=== PATIENT | female | born 1960 | race Caucasian/White ===

== ENCOUNTER → 2017-07-09 | Outpatient (CLI) | payer OTHER ==
[~2017-07-09] MED LIST: CALCTAB5 PO; PANT40TA PO
--- NOTE | 2017-07-09 13:03 | DIAGNOSTIC IMAGING REPORT ---
GASTRIC EMPTYING HISTORY: Pain. Nausea. ABDOMINAL PAIN, EPIGASTRIC PAIN COMPARISON: None. TECHNIQUE: Following the oral administration of 1 mCi of technetium 99m sulfur colloid in egg sandwich and 8 ounces of water, static abdominal images are obtained anteriorly and posteriorly at 0 minutes, 1 hour, 2 hour, and 4 hour time intervals. Gastric emptying was calculated utilizing the geometric mean method. FINDINGS: There is approximately 78 % activity remaining at the 1 hour time interval (normal is less than 90%), 40 % remaining at the 2 hour time interval (normal is less than 60%), and 4 % activity remaining at the 4 hour time interval (normal is less than 10%). IMPRESSION: No evidence for delayed gastric emptying. The above report was generated using voice recognition software. It may contain grammatical, syntax or spelling errors. Electronically signed by: Álvaro Martinez M.D. 07/09/2017 1:01 PM Dictated Date/Time: 07/09/2017 1:00 PM
== END | disposition home or self-care (01) ==
LOC: C.NUCL 08:03
PROVIDERS: ATTEND Internal Medicine
DX: R10.13 Epigastric pain (principal)

== ENCOUNTER 2023-03-27 06:15 | Inpatient (IN) ==
[2023-03-27 06:50] LABS: Basophils # (auto) 0.07 K/uL (0.00-0.20); Basophils % (auto) 0.6 %; Eosinophils # (auto) 0.04 K/uL (0.00-0.50); Eosinophils % (auto) 0.3 %; Hematocrit (blood only) 37.9 % (37.0-47.0); Hemoglobin 14.1 g/dl (12.0-16.0); Immature Granulocytes # (auto) 0.04 K/uL (0.01-0.20); Immature Granulocytes % (auto) 0.3 %; Lymphocytes # (auto) 1.27 K/uL (1.20-3.40); Lymphocytes % (auto) 10.9 %; Mean Corpuscular Hemoglobin 33.2 pg (25.0-34.0); Mean Corpuscular Hgb Conc 37.2 g/dL (32.0-36.0); Mean Corpuscular Volume 89.2 fL (80.0-100.0); Mean Platelet Volume 9.1 fL (9.4-12.4); Monocytes # (auto) 0.47 K/uL (0.11-0.59); Neutrophils # (auto) 9.78 K/uL (1.40-6.50); Neutrophils % (auto) 83.9 %; Platelet Count 284 K/uL (130-400); RDW Coefficient of Variation 11.2 % (11.5-14.5); RDW Standard Deviation 35.8 fL (36.4-46.3); Red Blood Count 4.25 M/uL (4.20-5.40); White Blood Count 11.67 K/ul (4.8-10.8)
--- OUTSIDE RECORDS SUMMARY | 2023-03-27 06:56 | External Medical Summary | Continuity of Care Document ---
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 Role Phone Marlyn Garcia Primary Care Physician [phone] [id number] Date[facility] 11/11[facility] - 11/11/22 [facility] [address] [place], [place] [id number] [facility] [address] [place] [id number] Encounter Diagnosis Raynaud disease(Discharge Diagnosis) - 11/11/22 Tinea unguium(Discharge Diagnosis) - 11/11/22 Discharge Disposition: Home or Self Care Attending Physician: BRITT Cherry Christina L Allergies, Adverse Reactions, Alerts Substance Reaction Severity Status omeprazole rash Active Percocet 7.5/325 insomnia Active Assessment and Plan Extracted from: Title:Follow Up Visit Author:BRITT Cherry, Pavel Schuster Date:11/11/22 1.Raynaud disease 2.Tinea unguium Patient will continue topical Kerydin, not need of any refills today. Overall I appreciate significant improvement there is no paronychia or signs of infection recommend follow-up in 6 months. 15-minute follow-up visit, 5-minute chart review, 10 minutes [id number] Immunizations Given and Recorded Vaccine Date Status Refusal Reason SARS-CoV-2 (COVID-19) mRNA-1273 vaccine 1 08/08/20 Recorded SARS-CoV-2 (COVID-19) mRNA-1273 vaccine 2 07/11/20 Recorded 1Result Comment: 2020-09-20: Historical information-source unspecified 2Result Comment: 2020-09-20: Historical information-source unspecified Medications famotidine 20 mg oral tablet Start: 10/18/21 13:28:00 EDT Start Date: 10/18/21 Status: Ordered magnesium oxide Start: 02/18/20 15:00:00 EDT Start Date: 02/18/20 Status: Ordered mirtazapine 7.5 mg oral tablet Start: 10/18/21 13:27:00 EDT Start Date: 10/18/21 Status: Ordered multivitamin Start: 02/18/20 14:59:00 EDT Start Date: 02/18/20 Status: Ordered nystatin 100,000 units/mL oral suspension Start: 10/18/21 13:27:00 EDT Start Date: 10/18/21 Status: Ordered ondansetron 4 mg oral tablet Start: 02/18/20 14:59:00 EDT Start Date: 02/18/20 Status: Ordered Premarin 0.625 mg/g vaginal cream with applicator Start: 01/12/19 11:15:00 EDT, 1 g = Start Date: 01/12/19 Status: Ordered sertraline 25 mg oral tablet Start: 10/18/21 13:27:00 EDT, 1 tab, PO, Daily Start Date: 10/18/21 Status: Ordered SUMAtriptan 25 mg oral tablet take 1 tablet by mouth if needed AT ONSET OF HEADACHE may repeat ... (REFER TO PRESCRIPTION NOTES). Start Date: 11/11/22 Status: Ordered Tavaborole 5% topical solution Start: 01/29/22 10:17:00 EDT, See Instructions, Disp# 10 mL, Refills: 4, APPLY TOPICALLY DAILY FOR 48 WEEKS, Pharmacy: [facility] #[id number] Start Date: 01/29/22 Status: Ordered Zinc Start: 02/18/20 15:00:00 EDT Start Date: 02/18/20 Status: Ordered Mental Status 11/11/22 Barriers to Learning one year None evide nt Mandatory Health Literacy Documentation Yes Health Literacy Communication Barriers N ever Primary Language Nepalese Problem List Condition Confirmation Course Effective Dates Status Health St atus Informant Right-sided chest wall pain Confirmed Active Chronic fatigue syndrome with fibromyalgia Confirmed Active GERD (gastroesophageal reflux disease) Confirmed Active Tinea unguium Confirmed Active Plantar fasciitis, right Confirmed Active Raynaud disease Confirmed Active Reactive airway disease Confirmed Active Diagnosis Diagnosis Type Effective Dates Health Status inical Service Informant Raynaud disease Discharge Diagnosis 11/11/22 Tinea unguium Discharge Diagnosis 11/11/22 Vital Signs Most recent to oldest [Reference Range]: 1 Height 153.5 cm (11/11/22 9:09 AM) Patient Weight 38.6 kg (11/11/22 9:09 AM) Body Mass Index 16.38 kg/m2 (11/11/22 9:09 AM) Social History Social History Type Response Smoking Status Never smoked cigaret beto Sex Female Ortho Outpt Note * BRITT Cherry, Lizzy Schuster: PERFORM Event Display: Ortho Outpt Note Authored Date: [id number] Chief Complaint 6-month follow up for Raynaud's, medication is helping and patient states it''s moving in the rightdirection Primary Care Provider DO Garcia Laura M Subjective Patient is a very pleasant 61-year-old female presenting today for follow-up evaluation of a fungaltoenailhistory of athlete's foot infection and history of Raynaud's to distal extremities. She has been using topical Kerydin to the toenail at her last visit with me on May 20, 2022she wasdoing well. -I had recommended she continue her topical antifungal medicationat her next follow-up. -Doing great today no acute concerns. Review of Systems Raynaud's Objective Vitals & Measurements WT:38.600kg(Dosing) WT:38.6kg Physical Exam Problem focused bilateral feet: Dorsalis pedis pulse palpable 2 out of 4posterior tibial pulse palpable 2 out of 4capillary refill time less than 3 seconds skin turgor is good to all digits of both feet pedal hair is present Gross sensation and neurovascular status is intact to both feet Skin is clean and dry with no open wounds or lesions Bilateral hallux toenailsstill has some mild dystrophyonly present at distal aspect of the nailmore prevalent on left versus right great toe. Overall significant improvement noted clinical photo in chart. Raynaud's disease stable to both feet. History of Planter fasciitis not addressed at today's visit. Images 2022-11-11 09:22:13 Assessment/Plan 1.Raynaud disease 2.Tinea unguium Patient will continue topical Kerydin, not need of any refills today. Overall I appreciate significant improvement there is no paronychia or signs of infection recommend follow-up in 6 months. 15-minute follow-up visit, 5-minute chart review, 10 minutes [id number] Electronic Signature on File Electronically Reviewed/Signed by: Lizzy Cherry DPM Author Signature Dt/Tm:11/11/2022 09:26 AM Division of Sports Medicine CLR Patient Care team information Care Team Personnel Name: DO Garcia Laura M Position: Referring DIRECT Member Role: Primary Care Provider Address: Address: [address] [place] [phone] Name: BRITT Cherry Christina L Position: Physician - Podiatry Member Role: Lifetime Relationship Address: Address: [address] [address] Care Team Related Persons Name: ASHLIE PULIDO Address: home [address] [place] [phone] Name: TREVOR PULIDO Address: home [address] [place] [phone]
[2023-03-27] MEDS ORDERED: SODIUM CHLORIDE 0.9% 1,000 ML IV ONE (06:58)
[2023-03-27] MEDS ORDERED: LEVALBUTEROL 1.25 MG/3 ML NEB NEB STA (07:01)
[2023-03-27 07:05] LABS: Albumin Globulin Ratio 1.9 (0.9-2); Albumin Level 4.8 gm/dl (3.4-5.0); BUN Creatinine Ratio 22.2 (10-20); Bilirubin,Total 1.1 mg/dl (0.2-1.0); Calcium 9.7 mg/dl (8.6-10.3); Creatinine Clr Calc Pharmacy 58.2 ml/min; Est GFR (African American) 109.9 ml/min; Est GFR (Non-African American) 94.8 ml/min; Globulin 2.5 gm/dl (2.5-4.0); Potassium 3.9 mmol/L (3.5-5.1); Total Protein 7.3 gm/dl (6.0-8.3)
[2023-03-27 07:11] LABS: Troponin I High Sensitivity 4.5 pg/ml (0-14)
[2023-03-27 07:21] LABS: Thyroid Stimulating Hormone 1.362 uIu/ml (0.300-4.500)
--- NOTE | 2023-03-27 07:33 | Emergency Department Note ---
Impression & Plan Respiratory syncytial virus (RSV), Dizziness, Atypical chest pain ED Provider Note Provider: Shashi Ocasio MD DATE OF SERVICE: 03/27/2023 CHIEF COMPLAINT: Respiratory symptoms, chest discomfort, disorientation HISTORY OF PRESENT ILLNESS: Patient is a 62-year-old female reports has been ill for just over 2 weeks. Started with sinus congestion and cough symptoms. Seen by her PCP just before and put on amoxicillin questioning sinusitis. This was not helping and several days ago and further discussion with the primary doctor's office as well as had additional telemedicine visit. Was initially switched to cefdinir and then had a respiratory viral panel completed yesterday that returned positive for adenovirus and RSV. Doctor told her to stop the antibiotic which she has not taken yet today and started 20 mg prednisone as well as use levobunolol to help with her symptoms. Overnight however the patient states been able to sleep intermittently coughing nonproductive in nature with some pain in her right forearm, left upper arm, and left chest at times. [place] some palpitations as well as some chills. Denies significant abdominal pain or nausea or vomiting. No recent travel. No sick contacts. States felt dizzy and lightheaded some points overnight but has not passed out or fallen. Denies numbness or tingling in the extremities. Was up to make some food and breakfast and then start the new steroid but according to family presents she was having difficulty this was shuffling around and was not herself. She seemed a bit disoriented. Has a history of SVT and follows with Dr. Anderson and was scheduled for stress echo several days ago but had to reschedule due to her illness. Reports sensitive to many medications and has been utilizing honey and some Vicks rub but staying away from many cough and cold medicines. Minimal chest discomfort at this time. She does report she had a couple lung nodules followed with CT scans in the past. PAST MEDICAL HISTORY: As noted above MEDICATIONS: Reviewed medication list but has not been able to pickling grader the level butyryl yet has not yet started prednisone. SOCIAL HISTORY: Smoked briefly as a teenager many years ago but otherwise not smoking PHYSICAL EXAM: GENERAL: alert and oriented in no acute distress on stretcher Head: normocephalic and atraumatic EYES: No injection, discharge or icterus. PERRL, EOMI. NECK: Trachea midline. Supple with good range of motion of the neck ENT: Mucous membranes pink and moist. Pharynx without erythema or exudate. LUNGS: Airway patent. No retractions. Breath sounds clear with good air entry bilaterally. Deep breaths provoke coughing HEART: Regular rate and rhythm. No chest wall tenderness ABDOMEN: Soft and non-tender, without guarding or rebound. SKIN: Acyanotic, warm, dry, without rashes EXTREMITIES: Without swelling, tenderness or deformity NEUROLOGICAL: No focal deficits. No aphasia. No facial droop or slurred speech. Normal strength and tone in the extremities. Sensation to gross touch normal. EK bpm normal sinus rhythm. No PVC or PAC. No acute ST segment elevation or depression with a QTc of 430. CONTINUOUS CARDIAC MONITORING: was ordered and showed a heart rate of 80s-90s bpm in normal sinus rhythm Patient's laboratory studies and imaging reviewed. Differential includes Infection, pneumonia, sinusitis, NEEDLE SETTER, meningitis, dehydration, metabolic abnormality, hypo/hyperglycemia, electrolyte disturbance, anemia, hypoxia/asthma, cardiac sources -- including PE, dissection, ACS--, intracerebral event, toxicologic, neurologic, as well as other pathologies. IMPRESSION/MEDICAL DECISION MAKING: Patient 2-week of illness. Tested positive for adenovirus and RSV; obtained via the [facility] medical record system this testing result from yesterday. Chest x-ray obtained. Not hypoxic here. Doubt pneumonia and has been on antibiotics. History of sensitivity medications as well as a history of SVT. Unclear if she could have had some brief episodes overnight but does not appear to be SVT upon arrival. EKG is reassuring without ischemic changes. Troponin was sent for completeness. Basic labs obtained. Given some IV fluid as well as a bit of levalbuterol to see if this helps with some of her symptoms. Not significantly wheezing but reports a history of "reactive airway" and as such we will see if this helps a bit with cough. The disorientation and dizziness I question her from generalized illness and some weakness and again received some IV fluids. No trauma or syncope. Nonfocal in nature I doubt seizure or CVA. Quite fatigued. Blood work obtained here with a slight white blood cell count of 11.6 not currently on steroids. No evidence of anemia or thrombocytopenia on lab work. Sodium mildly low at 131. No significant renal dysfunction noted today. No other significant electrolyte abnormality. No evidence of hepatitis or pancreatitis based on labs. Troponin is reassuringly normal. TSH within normal limits. Chest x-ray reviewed and interpreted by myself without evidence of focal consolidation concerning for pneumonia, pneumothorax, or significant fluid overload. No cardiomegaly. Radiology report reviewed. No evidence of NEEDLE SETTER or RPA and she does NOT appear meningitic. Question if her weakness and symptoms are related to her viral illness. History of SVT does question if she possibly had an episode or 2 overnight but cannot confirm. At this time given her generalized weakness now causing even some mild confusion at some point so I do not believe a head CT would be beneficial. Do not believe antibiotics indicated at this point. Discussed with her and family at bedside. Patient still experiencing some lightheadedness in a chair decision making and she was to stay for observation. Discussed with hospitalist team. Later received a dose of Tylenol for some headache. DIAGNOSIS: RSV/adenovirus, chest pain, weakness DISPOSITION: Hospitalist will evaluate Patient was agreeable with this plan. Past Med/Surg History Medical History Sinus infection Palpitations Dizziness History of paroxysmal supraventricular tachycardia Underweight pt stated she "is underweight and dehydrates easily. she was given permission by the anesthesiologist and her opthalmologist to drink 8oz of water 3.5 hours prior to her surgery." Chronic fatigue syndrome History of GI bleed after endoscopy Asthma Lyme disease 2005 - treated Endometriosis Vertigo Tinnitus Hyperacusis Eustachian tube dysfunction Reactive airway disease Surgical History Hx of cataract extraction rt. Hx laparoscopic cholecystectomy (03/04/22) Laparoscopic cholecystectomy. Dr. Alexandra History of open reduction and internal fixation (ORIF) procedure right hand 5th finger fx Nausea and vomiting after administration of anesthetic agent History of anesthesia reaction "trouble waking up" Hx of laparoscopy History of repair of inguinal hernia S/P colonoscopy H/O toe surgery Family History Family/Other Diabetes Heart disease Cancer Lung cancer Father Cancer Colorectal cancer Heart disease Hypertension Mother Cancer Diabetes Uncle Cancer Sister Clotting disorder Social History Smoking Status: Former smoker Second Hand Exposure: Yes (hx); Do You Dip or Chew Tobacco: No; Hx Alcohol Use: No Hx Substance Use: Yes Non-Prescribed Medications: Amphetamines, Former Misuse of Non-Prescribed Rx, Hallucinogens and Marijuana Non-Prescribed Medications Comment: former Preferred Language: Tunisian Communication Ability: Effective Visual Impairment: No Limitations Punch Press Setter Required: No Beliefs That Will Affect Care: None marital status: / Current Living Situation: Alone current occupational status: unemployed and retired current occupation: Homemaker How many Children do You have: 2 Feels Safe at Home: Yes Diet: gluten free Diet Comment: Dairy free during the past year weight has: decreased > 10 lbs Assistive Devices: Glasses Allergies Allergies Allergy/AdvReac Type Severity Reaction Status Date / Time scopolamine Allergy Intermediate Blurry Verified 02/03/23 13:10 Vision, Dizzy, Groggy, for weeks omeprazole Allergy Unknown Rash Verified 02/03/23 13:10 oxycodone [From Percocet] AdvReac Unknown RESTLESSNES Verified 02/03/23 13:10 S Home Meds Home Medications Medication Instructions Recorded Confirmed polyethylene glycol 3350 17 17 gm PO QAM PRN Constipation 06/22/19 03/27/23 gram/dose oral powder (Miralax) zinc oxide 15 mg disintegrating 15 mg PO QDL 06/22/19 03/27/23 tablet estradiol 0.01% (0.1 mg/gram) See Rx Instructions .Route .COMPLEX 09/09/19 03/27/23 vaginal cream digestive enzymes 1 cap PO BID 09/14/19 03/27/23 Bone Up 1 tab PO BID 03/01/22 03/27/23 famotidine 20 mg tablet (Pepcid) 20 mg PO QPM 03/01/22 03/27/23 fluticasone furoate 100 1 inh inhalation QAM 03/01/22 03/27/23 mcg-vilanterol 25 mcg/dose inhalation powder (Breo Ellipta) tavaborole 5 % topical solution 1 applic topical QAM 03/01/22 03/27/23 with applicator (Kerydin) Sinus Calm 1 tab PO DIRECTED PRN Congestion 06/18/22 03/27/23 Soothe Eye Drops 1 drp ophthalmic (eye) DIRECTED 06/18/22 03/27/23 Magnesium 150 Mg 150 mg PO DAILY 03/27/23 03/27/23 Multivitamin Gummies 1 ea PO BID 03/27/23 03/27/23 Pearls Probiotic 1 cap PO DAILY 03/27/23 03/27/23 ascorbic acid (vitamin C) 500 mg 500 mg PO DAILY 03/27/23 03/27/23 tablet triamcinolone acetonide 55 mcg See Rx Instructions .Route .COMPLEX 03/27/23 03/27/23 nasal spray aerosol (Nasacort) Results & Data (ED) Vital Signs Vital Signs - 24 hr 03/27/23 06:16 03/27/23 06:18 03/27/23 06:18 Temperature 37.0 C Temperature Source Oral Pulse Rate 92 H 99 H 100 H Pulse Rate from SpO2 Sensor Respiratory Rate 20 15 Respiratory Effort / Characteristics Non-Labored Spontaneous Respiratory Depth Normal Blood Pressure 131/77 Blood Pressure Mean 95 Pulse Oximetry 99 Oxygen Delivery Method Room Air Sepsis Recent Fever Within 48 Hours Yes Sepsis New/Unexplained Change in Mental Status N/A Sepsis Action Taken by Nursing No Action Required 03/27/23 06:22 03/27/23 06:22 03/27/23 06:30 Temperature Temperature Source Pulse Rate 88 Pulse Rate from SpO2 Sensor 88 Respiratory Rate 19 Respiratory Effort / Characteristics Respiratory Depth Blood Pressure 131/77 130/79 Blood Pressure Mean 119 87 Pulse Oximetry 100 Oxygen Delivery Method Sepsis Recent Fever Within 48 Hours Sepsis New/Unexplained Change in Mental Status Sepsis Action Taken by Nursing 03/27/23 06:30 03/27/23 06:48 03/27/23 07:00 Temperature Temperature Source Pulse Rate 83 Pulse Rate from SpO2 Sensor 82 Respiratory Rate 15 Respiratory Effort / Characteristics Respiratory Depth Blood Pressure 117/67 Blood Pressure Mean 93 Pulse Oximetry 100 99 Oxygen Delivery Method Room Air Sepsis Recent Fever Within 48 Hours Sepsis New/Unexplained Change in Mental Status Sepsis Action Taken by Nursing 03/27/23 07:00 03/27/23 07:30 03/27/23 07:30 Temperature Temperature Source Pulse Rate 85 90 Pulse Rate from SpO2 Sensor 84 94 H Respiratory Rate 26 H 16 Respiratory Effort / Characteristics Respiratory Depth Blood Pressure 124/73 Blood Pressure Mean 80 Pulse Oximetry 98 100 Oxygen Delivery Method Sepsis Recent Fever Within 48 Hours Sepsis New/Unexplained Change in Mental Status Sepsis Action Taken by Nursing 03/27/23 08:00 03/27/23 08:00 03/27/23 08:30 Temperature Temperature Source Pulse Rate 93 H Pulse Rate from SpO2 Sensor 92 H Respiratory Rate 14 Respiratory Effort / Characteristics Respiratory Depth Blood Pressure 123/77 123/74 Blood Pressure Mean 88 92 Pulse Oximetry 100 Oxygen Delivery Method Sepsis Recent Fever Within 48 Hours Sepsis New/Unexplained Change in Mental Status Sepsis Action Taken by Nursing 03/27/23 08:30 03/27/23 09:00 03/27/23 09:00 Temperature Temperature Source Pulse Rate 91 H 91 H Pulse Rate from SpO2 Sensor 92 H 92 H Respiratory Rate 18 21 Respiratory Effort / Characteristics Respiratory Depth Blood Pressure 117/68 Blood Pressure Mean 77 Pulse Oximetry 99 97 Oxygen Delivery Method Sepsis Recent Fever Within 48 Hours Sepsis New/Unexplained Change in Mental Status Sepsis Action Taken by Nursing 03/27/23 09:30 03/27/23 09:30 03/27/23 10:00 Temperature Temperature Source Pulse Rate 95 H 86 Pulse Rate from SpO2 Sensor 95 H 86 Respiratory Rate 24 17 Respiratory Effort / Characteristics Respiratory Depth Blood Pressure 118/74 Blood Pressure Mean 88 Pulse Oximetry 98 98 Oxygen Delivery Method Sepsis Recent Fever Within 48 Hours Sepsis New/Unexplained Change in Mental Status Sepsis Action Taken by Nursing 03/27/23 10:00 03/27/23 10:30 03/27/23 10:30 Temperature Temperature Source Pulse Rate 84 Pulse Rate from SpO2 Sensor 83 Respiratory Rate Respiratory Effort / Characteristics Respiratory Depth Blood Pressure 132/73 95/54 L Blood Pressure Mean 88 59 Pulse Oximetry 96 Oxygen Delivery Method Sepsis Recent Fever Within 48 Hours Sepsis New/Unexplained Change in Mental Status Sepsis Action Taken by Nursing 03/27/23 10:37 03/27/23 11:00 03/27/23 11:00 Temperature Temperature Source Pulse Rate 77 92 H Pulse Rate from SpO2 Sensor 91 H Respiratory Rate 18 Respiratory Effort / Characteristics Respiratory Depth Blood Pressure 100/75 Blood Pressure Mean 82 Pulse Oximetry 99 Oxygen Delivery Method Sepsis Recent Fever Within 48 Hours Sepsis New/Unexplained Change in Mental Status Sepsis Action Taken by Nursing 03/27/23 11:30 03/27/23 12:00 Temperature Temperature Source Pulse Rate 87 86 Pulse Rate from SpO2 Sensor 87 87 Respiratory Rate 15 18 Respiratory Effort / Characteristics Respiratory Depth Blood Pressure 110/62 120/72 Blood Pressure Mean 78 88 Pulse Oximetry 96 97 Oxygen Delivery Method Sepsis Recent Fever Within 48 Hours Sepsis New/Unexplained Change in Mental Status Sepsis Action Taken by Nursing Laboratory Data 03/27/23 06:26 03/27/23 06:26 Lab Results 03/27/23 03/27/23 03/27/23 Range/Units 06:26 12:00 Unknown WBC 11.67 H (4.8-10.8) K/ul RBC 4.25 (4.20-5.40) M/uL Hgb 14.1 (12.0-16.0) g/dl Hct 37.9 (37.0-47.0) % MCV 89.2 (80.0-100.0) fL MCH 33.2 (25.0-34.0) pg MCHC 37.2 H (32.0-36.0) g/dL RDW Std Deviation 35.8 L (36.4-46.3) fL RDW Coeff of [place] 11.2 L (11.5-14.5) % Plt Count 284 (130-400) K/uL MPV 9.1 L (9.4-12.4) fL Immature Gran % (Auto) 0.3 % Neut % (Auto) 83.9 % Lymph % (Auto) 10.9 % Adams % (Auto) 4.0 % Eos % (Auto) 0.3 % Baso % (Auto) 0.6 % Neut # (Auto) 9.78 H (1.40-6.50) K/uL Lymph # (Auto) 1.27 (1.20-3.40) K/uL Adams # (Auto) 0.47 (0.11-0.59) K/uL Eos # (Auto) 0.04 (0.00-0.50) K/uL Baso # (Auto) 0.07 (0.00-0.20) K/uL Immature Gran # (Auto) 0.04 (0.01-0.20) K/uL PT 11.0 (9.0-12.0) Seconds INR 1.0 (0.9-1.1) Sodium 131 L (136-145) mmol/L Potassium 3.9 (3.5-5.1) mmol/L Chloride 98 (98-107) mmol/L Carbon Dioxide 23 (21-32) mmol/L Anion Gap 10 (3-11) BUN 14 (6-23) mg/dl Creatinine 0.63 (0.6-1.2) mg/dl Est Cr Clr Drug Dosing 58.2 ml/min Est GFR ( Amer) 109.9 ml/min Est GFR (Non-Af Amer) 94.8 ml/min BUN/Creatinine Ratio 22.2 H (10-20) Glucose 93 (70-99(Fasting)) mg/dl Calcium 9.7 (8.6-10.3) mg/dl Phosphorus 2.8 (2.5-4.9) mg/dl Magnesium 2.1 (1.7-2.4) mg/dl Total Bilirubin 1.1 H (0.2-1.0) mg/dl AST 33 (13-39) U/L ALT 51 (7-52) U/L Alkaline Phosphatase 77 (34-104) U/L Troponin I High Sens 4.5 2.5 (0-14) pg/ml Total Protein 7.3 (6.0-8.3) gm/dl Albumin 4.8 (3.4-5.0) gm/dl Globulin 2.5 (2.5-4.0) gm/dl Albumin/Globulin Ratio 1.9 (0.9-2) Lipase 13 (11-82) U/L Procalcitonin 0.05 (0-0.5) ng/ml TSH 1.362 (0.300-4.500) uIu/ml Urine Color Yellow Urine Appearance Clear (Clear) Urine pH 7.0 (4.5-7.5) Ur Specific [place] 1.010 (1.000-1.030) Urine Protein Negative (Negative) Urine Glucose (UA) Negative (Negative) Urine Ketones 1+ H (Negative) Urine Blood Negative (Negative) Urine Nitrite Negative (Negative) Urine Bilirubin Negative (Negative) Urine Urobilinogen Negative (Negative) Ur Leukocyte Esterase Negative (Negative) Administered Medications Discontinued Medications Acetaminophen (Acetaminophen 325 Mg Tab) 650 mg PO NOW STA Stop: 03/27/23 09:36 Last Admin: 03/27/23 09:41 Dose: 650 mg Documented By: HS Sodium Chloride (Nss) 1,000 mls @ 999 mls/hr IV .Q1H1M ONE Stop: 03/27/23 07:58 Last Infusion: 03/27/23 08:23 Dose: Infused Documented By: Admin: 03/27/23 07:19 Dose: 999 mls/hr Documented By: HS Levalbuterol HCl (Levalbuterol 1.25 Mg/3 Ml Neb) 1.25 mg NEB NOW STA Stop: 03/27/23 07:02 Last Admin: 03/27/23 07:19 Dose: 1.25 mg Documented By: HS Prednisone (Prednisone 50 Mg Tab) 20 mg PO ONCE ONE Stop: 03/27/23 08:36 Last Admin: 03/27/23 08:48 Dose: 20 mg Documented By: HS Imaging Data Radiologist's Impression: Chest X-Ray 03/27/23 06:32 XR chest 1V portable HISTORY: 62 years-old Female Chest pain, nonspecific acute chest pain with cough COMPARISON: 12/14/2022 TECHNIQUE: AP view of the chest FINDINGS: Cardiomediastinal and hilar silhouettes are within normal limits. No pneumothorax, pleural effusion, airspace consolidation or pulmonary edema. Bones appear grossly intact. IMPRESSION: No acute process. ACT 112: Negative or not required by law. The above report was generated using voice recognition software. It may contain grammatical, syntax or spelling errors. Electronically signed by: Barrera Mcbride M.D. 03/27/2023 7:32 AM Discharge Plan Visit Data Chief Complaint: Cardiac Assessment Stated Complaint: Chest Tightness, Vertigo ED Provider: Shashi Ocasio Discharge Problem: Respiratory syncytial virus (RSV), Dizziness, Atypical chest pain Patient Disposition: Being Evaluated by Hospitalist Forms Stand Alone Forms: [facility] Prescriptions Prescriptions: No Action zinc oxide 15 mg tablet,disintegrating 15 mg PO QDL polyethylene glycol 3350 [Miralax] 17 gram/dose powder 17 gm PO QAM PRN (Reason: Constipation) estradiol 0.01 % (0.1 mg/gram) cream See Rx Instructions .ROUTE .COMPLEX Rx Instructions: 1/2 g vaginal Twice weekly; digestive enzymes Capsule 1 cap PO BID tavaborole [Kerydin] 5 % solution with applicator 1 applic topical QAM famotidine [Pepcid] 20 mg tablet 20 mg PO QPM fluticasone furoate-vilanterol [Breo Ellipta] 100-25 mcg/dose blister with device 1 inh inhalation QAM Bone Up 1 tab PO BID ascorbic acid (vitamin C) [Vitamin C Buffered] 500 mg Tablet 500 mg PO DAILY triamcinolone acetonide [Nasacort] 55 mcg aerosol,spray See Rx Instructions .ROUTE .COMPLEX Rx Instructions: Instill 1 spray into each nostril every other day at night Magnesium 150 Mg 150 mg PO DAILY Multivitamin Gummies 1 ea PO BID Pearls Probiotic 1 cap PO DAILY Sinus Calm 1 tab PO DIRECTED PRN (Reason: Congestion) Soothe Eye Drops 1 drp ophthalmic (eye) DIRECTED Referrals Referrals: Marlyn Garcia DO [Primary Care Provider] -
[2023-03-27] MEDS ORDERED: predniSONE 50 MG TAB PO ONE (08:35)
--- NOTE | 2023-03-27 08:56 | History & Physical Report ---
Date of Service March 27, 2023 Assessment & Plan (1) Chronic fatigue syndrome: (2) History of paroxysmal supraventricular tachycardia: (3) Dizziness: (4) Palpitations: (5) Sinus infection: Plan: Nancy is a 62-year-old female that presented today with her son with complaints of fatigue, dizziness and chest tightness with shortness of breath that began this morning around 0400. Last week just before she was diagnosed with a sinus infection and was prescribed amoxicillin. She was not showing improvement and was switched to cefdinir. She tested positive for RSV and adenovirus yesterday and was advised to discontinue the cefdinir and prednisone was ordered but not started and her symptoms as outlined above started in the middle of the night at 4 AM. Patient has a history of SVT follows with doctors as already as an outpatient. An echo was ordered as an outpatient but rescheduled due to her illness. Additional history includes history of reactive airway disease, chronic fatigue syndrome and GI bleed. History of tobacco use. In the ED chest x-ray negative for acute cardiopulmonary disease, initial troponin negative 4.5, mild leukocytosis 11.67 which I suspect related to viral illness and slight hyponatremia which I suspect is related to viral illness and decreased p.o. intake.In the ED 1L NS be administered and lev albuterol. ECG in ED does not indicate ischemic abnormalities and no ectopy noted. Patient is hemodynamically stable. Last [facility] appt was 01/14/23: It was noted that she was having palpitations for a week at that time and was in the emergency room on 12/14 with similar symptoms including palpitations and fatigue. She was given IV fluids and released from the ER. At that time she also reported chest discomfort intermittently. Reportedly outpatient records reveal a Zio patch was placed 12/18 and per patient was noted to atrial tachycardia. Given patient's history of SVT and chronic fatigue syndrome patient reluctant to return home. Will continue rehydration and workup including mag, Phos, trend troponin x 1 blood cultures, sputum culture, UA with culture and echo. Will have nebs PRN and initiate flutter valve and continue daily steroids with some PT/OT for supportive care and evaluation. Dizziness: Palpitations: Acute uncontrolled Follows with Dr. Herrera as [facility] ECHO was ordered as [facility] but cancelled due to illness Continue IVF at 50mL/hour after first liter; x2 bags; reassess in a.m. Check UA Sinusitis: RSV +: Adenovirus +: Acute uncontrolled 03/19 started on amoxicillin for sinusitis. No improvement over the last week and was switched to cefdinir. 03/26 tested positive for RSV and adenovirus. Was advised to discontinue antibiotics and prednisone was ordered yesterday; patient had not taken any doses. CXR negative for acute cardiopulmonary disease Prednisone 20 mg given in ED; continue daily x5 days IV fluids 50 mL/h x 2 bags; reassess in a.m. Check sputum culture Placed on droplet precautions Pro-Allan negative Flutter valve ordered Chronic fatigue syndrome: Chronic stable Re-involve PT/OT Recent CT chest indicated some lung nodules that were being followed as an outpatient Procalcitonin negative History of PSVT: Chronic stable Follows with Dr. Herrera as [facility] ECHO was ordered as [facility] but cancelled due to illness No ischemia noted on ECG today NSR without ectopy Does not take any medications for heart rate Disposition: PCP: Dr. Hoyt CODE STATUS: Full code VTE prophylaxis: Teds and SCDs for now I spent a total of 87 minutes coordinating, documenting, and providing care for this patient excluding time spent in the performance of separately billed services. All of the aforementioned completed while collaborating with the assigned attending physician for a full treatment plan. Please see their addendum for further details. History of Present Illness Primary Care Provider: Marlyn Garcia DO Nancy is a 62-year-old female that presented today with her son with complaints of fatigue, dizziness and chest tightness with shortness of breath that began this morning. Last week just before she was diagnosed with a sinus infection and was prescribed amoxicillin. She was not showing improvement and was switched to cefdinir. She tested positive for RSV and adenovirus yesterday and was advised to discontinue the cefdinir and prednisone was ordered but not started and her symptoms as outlined above started in the middle of the night at 4 AM. Patient has a history of SVT follows with doctors as already as an outpatient. An echo was ordered as an outpatient but rescheduled due to her illness. Additional history includes history of reactive airway disease, chronic fatigue syndrome and GI bleed. History of tobacco use. In the ED chest x-ray negative for acute cardiopulmonary disease, initial troponin negative 4.5, mild leukocytosis 11.67 which I suspect related to viral illness and slight hyponatremia which I suspect is related to viral illness and decreased p.o. intake. Pt received 1 L NSB and lev albuterol. ECG in ED does not indicate ischemic abnormalities and no ectopy noted. Patient is hemodynamically stable. Last [facility] appt was 01/14/23: It was noted that she was having palpitations for a week at that time and was in the emergency room on 12/14 with similar symptoms including palpitations and fatigue. She was given IV fluids and released from the ER. At that time she also reported chest discomfort intermittently. Reportedly outpatient records reveal a Zio patch was placed 12/18 and per patient Given patient's history of SVT and chronic fatigue syndrome patient reluctant to return home. Will continue rehydration and workup including mag, Phos, trend troponin x 1 blood cultures, sputum culture, UA with culture and echo. Will have nebs PRN and initiate flutter valve and continue daily steroids with some PT/OT for supportive care and evaluation. Patient will be admitted for further evaluation management. Please see A/P for further details. Allergies Allergy/AdvReac Type Severity Reaction Status Date / Time scopolamine Allergy Intermediate Blurry Verified 02/03/23 13:10 Vision, Dizzy, Groggy, for weeks omeprazole Allergy Unknown Rash Verified 02/03/23 13:10 oxycodone [From Percocet] AdvReac Unknown RESTLESSNES Verified 02/03/23 13:10 S Home Medications Medication Instructions Recorded Confirmed Type polyethylene glycol 3350 17 17 gm PO QAM PRN Constipation 06/22/19 03/27/23 History gram/dose oral powder (Miralax) zinc oxide 15 mg disintegrating 15 mg PO QDL 06/22/19 03/27/23 History tablet estradiol 0.01% (0.1 mg/gram) See Rx Instructions .Route .COMPLEX 09/09/19 03/27/23 History vaginal cream digestive enzymes 1 cap PO BID 09/14/19 03/27/23 History Bone Up 1 tab PO BID 03/01/22 03/27/23 History famotidine 20 mg tablet (Pepcid) 20 mg PO QPM 03/01/22 03/27/23 History fluticasone furoate 100 1 inh inhalation QAM 03/01/22 03/27/23 History mcg-vilanterol 25 mcg/dose inhalation powder (Breo Ellipta) tavaborole 5 % topical solution 1 applic topical QAM 03/01/22 03/27/23 History with applicator (Rebecain) Sinus Calm 1 tab PO DIRECTED PRN Congestion 06/18/22 03/27/23 History Soothe Eye Drops 1 drp ophthalmic (eye) DIRECTED 06/18/22 03/27/23 History Magnesium 150 Mg 150 mg PO DAILY 03/27/23 03/27/23 History Multivitamin Gummies 1 ea PO BID 03/27/23 03/27/23 History Pearls Probiotic 1 cap PO DAILY 03/27/23 03/27/23 History ascorbic acid (vitamin C) 500 mg 500 mg PO DAILY 03/27/23 03/27/23 History tablet triamcinolone acetonide 55 mcg See Rx Instructions .Route .COMPLEX 03/27/23 03/27/23 History nasal spray aerosol (Nasacort) Past Med/Surg History Medical History Sinus infection Palpitations Dizziness History of paroxysmal supraventricular tachycardia Underweight pt stated she "is underweight and dehydrates easily. she was given permission by the anesthesiologist and her opthalmologist to drink 8oz of water 3.5 hours prior to her surgery." Chronic fatigue syndrome History of GI bleed after endoscopy Asthma Lyme disease 2004 - treated Endometriosis Vertigo Tinnitus Hyperacusis Eustachian tube dysfunction Reactive airway disease Surgical History Hx of cataract extraction rt. Hx laparoscopic cholecystectomy (03/04/22) Laparoscopic cholecystectomy. Dr. Alexandra History of open reduction and internal fixation (ORIF) procedure right hand 5th finger fx Nausea and vomiting after administration of anesthetic agent History of anesthesia reaction "trouble waking up" Hx of laparoscopy History of repair of inguinal hernia S/P colonoscopy H/O toe surgery Family History Family/Other Diabetes Heart disease Cancer Lung cancer Father Cancer Colorectal cancer Heart disease Hypertension Mother Cancer Diabetes Uncle Cancer Sister Clotting disorder Social History Smoking Status: Former smoker Second Hand Exposure: Yes (hx); Do You Dip or Chew Tobacco: No; Hx Alcohol Use: No Hx Substance Use: Yes Non-Prescribed Medications: Amphetamines, Former Misuse of Non-Prescribed Rx, Hallucinogens and Marijuana Non-Prescribed Medications Comment: former Preferred Language: Czech Communication Ability: Effective Visual Impairment: No Limitations Special Effects Designer Required: No Beliefs That Will Affect Care: None marital status: / Current Living Situation: Alone current occupational status: unemployed and retired current occupation: Homemaker How many Children do You have: 2 Feels Safe at Home: Yes Diet: gluten free Diet Comment: Dairy free during the past year weight has: decreased > 10 lbs Assistive Devices: Glasses Review of Systems Review of Systems: Neuro: (-) Falls, trauma, slurred speech (+) chills, no reported fever HEENT: (-) OCHOA, dizziness, dysphagia, visual or auditory changes CV: (-) CP, palpitations, swelling Resp: (+) intermittent SOB GI: (-) appetite changes, N/V/D, bowel changes : (-) urinary changes Skin: (-) rashes (+) flushing in cheeks Psych: (-) anxiety, depression Physical Exam Physical Exam: Neuro: AAOx4, PERRLA, no aphagia, memory changes, CNII-XII grossly intact. some flushing in face/cheeks HEENT: head normocephalic, moist mucus membranes CV: S1/S2, (-) M/G/R, (-) edema, cap refill < 3 seconds Resp: Lungs CTA in all dum[place]. On RA GI: Abdomen S/NT/ND, Ax4 bowel sounds, (-) CVA tenderness Musculoskeletal: 5/5 B/L UE strength, 5/5 B/L LE strength. No gait disturbance. Frail presentation with protein malnourishment Skin: (-) rashes , (-) erythema. Psych: euthymic mood Results & Data Results & Data Vital Signs (Past 12 Hours) Vital Signs Temp Pulse Resp BP Pulse Ox O2 Del Method 03/27/23 08:00 93 H 14 100 03/27/23 08:00 123/77 03/27/23 07:30 90 16 100 03/27/23 07:30 124/73 03/27/23 07:00 85 26 H 98 03/27/23 07:00 117/67 03/27/23 06:48 99 Room Air 03/27/23 06:30 83 15 100 03/27/23 06:30 130/79 03/27/23 06:22 131/77 03/27/23 06:22 88 19 100 03/27/23 06:18 100 H 15 03/27/23 06:18 99 H 03/27/23 06:16 37.0 C 92 H 20 131/77 99 Room Air Laboratory Results Short CBC 03/27/23 Range/Units 06:26 WBC 11.67 H (4.8-10.8) K/ul Hgb 14.1 (12.0-16.0) g/dl Hct 37.9 (37.0-47.0) % Plt Count 284 (130-400) K/uL BMP 03/27/23 06:26 Sodium 131 L Potassium 3.9 Chloride 98 Carbon Dioxide 23 BUN 14 Creatinine 0.63 Glucose 93 Calcium 9.7 Liver Function 03/27/23 Range/Units 06:26 Total Bilirubin 1.1 H (0.2-1.0) mg/dl AST 33 (13-39) U/L ALT 51 (7-52) U/L Alkaline Phosphatase 77 (34-104) U/L Albumin 4.8 (3.4-5.0) gm/dl Diagnostic Findings Chest X-Ray 03/27/23 06:32 XR chest 1V portable HISTORY: 62 years-old Female Chest pain, nonspecific acute chest pain with cough COMPARISON: 12/14/2022 TECHNIQUE: AP view of the chest FINDINGS: Cardiomediastinal and hilar silhouettes are within normal limits. No pneumothorax, pleural effusion, airspace consolidation or pulmonary edema. Bones appear grossly intact. IMPRESSION: No acute process. ACT 112: Negative or not required by law. The above report was generated using voice recognition software. It may contain grammatical, syntax or spelling errors. Electronically signed by: Barrera Mcbride M.D. 03/27/2023 7:32 AM Code Status & VTE Plan Code Status Full code in the event of cardiac or respiratory arrest Supervising Physician Co-Signing Physician Notes Patient is a 62-year-old female with history of reactive airway disease, chronic fatigue syndrome, paroxysmal SVT, is taking tube dysfunction and no other medical problems presents with history of dizziness, fatigue, chest tightness associated with some shortness of breath, cough with intermittent expectoration. Patient was diagnosed with sinus infection and was started on amoxicillin which was later changed to cefdinir. Respiratory panel done as outpatient was positive for adenovirus, RSV. Please review HPI for complete details of presentation. I personally reviewed blood work, imaging studies and EKG at the time of admission. Patient states that her blood pressure usually runs low at baseline (systolic high 90s to low 100s). On exam patient is thin, frail, no apparent distress, normocephalic/atraumatic, EOMI, normal breath sounds, clear to auscultation, S1-S2, no murmur, no pedal edema, abdomen soft, nontender, normal bowel sounds, alert, awake, oriented, grossly no focal deficits. Patient is admitted for management of acute bronchitis secondary to RSV/adenovirus. Chest x-ray showed no signs of pneumonia. Recently completed 1 week course of oral antibiotic. Procalcitonin normal. Given history of reactive airway disease, started on low-dose prednisone. Continue home inhalers. Nebs as needed. Pulmonary hygiene with flutter, and Mucinex. Patient is saturating well on room air. Mild hyponatremi a noted. Gentle IV fluids. Monitor sodium levels. I personally reviewed the record. Patient is interviewed and examined at bedside. Patient's care is coordinated with Gricel GARVEY. Please refer to the documentation above for details of patient's presentation and for discussion of other issues.
[2023-03-27] MEDS ORDERED: ALUMINUM/MAGNESIUM SUSP 30 ML UDC PO PRN (09:34)
[2023-03-27] MEDS ORDERED: ONDANSETRON INJ 2 MG/ML 2 ML VIAL IV PRN (09:34)
[2023-03-27] MEDS ORDERED: MAGNESIUM HYDROXIDE SUSP 30 ML UDC PO PRN (09:34)
[2023-03-27] MEDS ORDERED: ACETAMINOPHEN 325 MG TAB PO STA (09:35)
[2023-03-27] MEDS ORDERED: LEVALBUTEROL 1.25MG/0.5ML NEB NEB PRN (09:49)
[2023-03-27 10:04] LABS: Magnesium 2.1 mg/dl (1.7-2.4); Phosphorus 2.8 mg/dl (2.5-4.9)
[2023-03-27] MEDS ORDERED: SODIUM CHLORIDE 0.9% 1,000 ML IV SCH (11:15)
[2023-03-27 12:59] LABS: Appearance Urine Clear (Clear); Bilirubin Urine Negative (Negative); Blood Urine Negative (Negative); Color Urine Yellow; Glucose Urine UA Negative (Negative); Ketones Urine 1+ (Negative); Leukocyte Esterase Urine Negative (Negative); Nitrite Urine Negative (Negative); Protein Urine Negative (Negative); Urobilinogen Urine Negative (Negative)
--- NOTE | 2023-03-27 14:09 | Electrocardiogram Report ---
Test Reason : Blood Pressure : / mmHG Vent. Rate : 087 BPM Atrial Rate : 087 BPM P-R Int : 136 ms QRS Dur : 076 ms QT Int : 358 ms P-R-T Axes : 080 059 074 degrees QTc Int : 430 ms Normal sinus rhythm Normal ECG When compared with ECG of 14-DEC-2022 13:39, No significant change was found Confirmed by Chad Johnson ([id number]) on 03/27/2023 2:09:18 PM Referred By: REFERRED SELF Confirmed By:Murray Johnson
[2023-03-27] MEDS: ACETAMINOPHEN 325 MG TAB PO PRN (16:53)
[2023-03-27] MEDS: FAMOTIDINE 20 MG TAB PO SCH (20:43)
[2023-03-27] MEDS: guaiFENesin 600 MG TABCR PO SCH (20:44)
[2023-03-27] MEDS: HEPARIN SOD 5,000 UNIT/0.5 ML VIAL SQ SCH (20:44)
[2023-03-27] MEDS ORDERED: FLUTICASONE PROPIONATE NA SPR 16 GM BTL PRN (21:00)
[2023-03-28 06:15] LABS: Hematocrit (blood only) 35.4 % (37.0-47.0); Hemoglobin 12.5 g/dl (12.0-16.0); Mean Corpuscular Hemoglobin 32.6 pg (25.0-34.0); Mean Corpuscular Hgb Conc 35.3 g/dL (32.0-36.0); Mean Corpuscular Volume 92.4 fL (80.0-100.0); Mean Platelet Volume 9.4 fL (9.4-12.4); Platelet Count 241 K/uL (130-400); RDW Coefficient of Variation 11.6 % (11.5-14.5); RDW Standard Deviation 39.3 fL (36.4-46.3); Red Blood Count 3.83 M/uL (4.20-5.40); White Blood Count 9.32 K/ul (4.8-10.8)
[2023-03-28 06:30] LABS: Albumin Level 4.2 gm/dl (3.4-5.0); BUN Creatinine Ratio 22.7 (10-20); Bilirubin,Total 0.8 mg/dl (0.2-1.0); Calcium 9.1 mg/dl (8.6-10.3); Creatinine Clr Calc Pharmacy 53.8 ml/min; Est GFR (African American) 108.2 ml/min; Est GFR (Non-African American) 93.4 ml/min; Globulin 2.1 gm/dl (2.5-4.0); Total Protein 6.3 gm/dl (6.0-8.3)
[2023-03-28] MEDS: ACETAMINOPHEN 325 MG TAB PO PRN ×3 (07:55→23:58)
--- NOTE | 2023-03-28 08:48 | Hospitalist Progress Note ---
Date of Service March 28, 2023 Assessment & Plan (1) Viral respiratory illness: Plan: 03/19 started on amoxicillin for sinusitis. No improvement over the last week (so doubt diagnosis of acute bacterial sinusitis) and was switched to cefdinir. No improvement, then 03/26 tested positive for RSV and adenovirus. Was advised to discontinue antibiotics and prednisone was ordered but patient admitted prior to starting. Workup to date includes CXR negative for acute cardiopulmonary disease Prednisone 20 mg given in ED; continue daily x5 days Will hold IVF for now and intermittently bolus when needed. Cont other supportive care options such as mucinex. (2) Chronic fatigue syndrome: Plan: chronic, stable. Definitely playing a role with weakness and fatigue in the background of her infections. Cont to encourage her to ambulate OOB and Pt/OT (3) Palpitations: Plan: appears to be resolved. Still slightly tachycardic but she is still somewhat ill. (4) Vertigo: Plan: Pt reports this is improved with rehydration overnight and symptom management. She reports a h/o vertigo in the past. (5) Pulmonary nodule: Plan: followup imaging per PCP DVT proph: Heparin Full Code Dispo-cont monitoring on telemetry. BP low normal and HR in the 90s. Still lightly ill appearing. Expect she would go to home in next 2-3 days and symptoms and weakness improves. I spent a total [id number] coordinating, documenting, and providing care for this patient excluding time spent in the performance of separately billed services Crys Szymanski DO [facility] Hospitalist Admission and Anticipated Discharge Date Admission Date: March 27, 2023 Subjective Patient is a 62-year-old female admitted with fatigue, intermittent vertigo that has improved, congestion and cough present and worsening for the past 2 weeks secondary to RSV and adenovirus. She incidentally has a history of worsening ataxic gait that is being worked up by neurology as outpatient. She is improved today although still very weak. Son is at bedside and assists with history. She is requesting Tylenol. She reports a good appetite and is eating well and working with the caf to understand the gluten-free options. Physical Exam Physical Exam: CONSTITUTIONAL: WNWD, vitals as above, NAD EYES: normal conjunctivae, no scleral icterus ENT: external ear and nose normal, oropharynx clear, no TM abnormality, no maxillary or ethmoid sinus tenderness NECK: trachea midline, no lymphadenopathy, normal thyroid RESPIRATORY: clear to auscultation bilaterally with diminished breath sounds throughout, no crackles, rales or wheezes, normal respiratory effort, deep breaths trigger her to cough CARDIOVASCULAR: regular rate and rhythm, S1 and 2 heard without murmurs, gallops or rubs, no JVD CHEST: inspection of chest was normal GASTROINTESTINAL: soft, nontender, ND, no guarding MUSCULOSKELETAL: strength 5/5 throughout, head is normocephalic and atraumatic, SKIN: warm and dry NEUROLOGIC: CN 2-12 grossly intact, no sensory deficit, normal cognition, normal speech, no tremor PSYCHIATRIC: alert cooperative and oriented to person, place and time. Euthymic mood, makes good eye contact, language grossly intact, recent and remote memory grossly intact. Results & Data Results & Data Vital Signs (Past 12 Hours) Vital Signs Temp Pulse Pulse Pulse Resp BP BP 03/28/23 08:09 36.8 C 84 16 107/72 03/28/23 07:22 80 03/28/23 03:08 03/28/23 02:00 36.7 C 82 18 112/71 03/27/23 23:32 88 03/27/23 23:14 36.8 C 97 H 18 126/80 03/27/23 22:07 82 16 03/27/23 21:04 81 16 Pulse Ox O2 Del Method 03/28/23 08:09 98 Room Air 03/28/23 07:22 03/28/23 03:08 Room Air 03/28/23 02:00 96 Room Air 03/27/23 23:32 03/27/23 23:14 97 Room Air 03/27/23 22:07 98 Room Air 03/27/23 21:04 98 Room Air Laboratory Results Short CBC 03/28/23 Range/Units 05:26 WBC 9.32 (4.8-10.8) K/ul Hgb 12.5 (12.0-16.0) g/dl Hct 35.4 L (37.0-47.0) % Plt Count 241 (130-400) K/uL BMP 03/28/23 05:26 Sodium 135 L Potassium 4.0 Chloride 104 Carbon Dioxide 25 BUN 15 Creatinine 0.66 Glucose 82 Calcium 9.1 Liver Function 03/28/23 Range/Units 05:26 Total Bilirubin 0.8 (0.2-1.0) mg/dl AST 25 (13-39) U/L ALT 42 (7-52) U/L Alkaline Phosphatase 67 (34-104) U/L Albumin 4.2 (3.4-5.0) gm/dl Urine 03/27/23 Range/Units Unknown Urine Color Yellow Urine Appearance Clear (Clear) Urine pH 7.0 (4.5-7.5) Ur Specific [place] 1.010 (1.000-1.030) Urine Protein Negative (Negative) Urine Glucose (UA) Negative (Negative) Medications Administered Current Inpatient Medications Acetaminophen (Acetaminophen 325 Mg Tab) 650 mg PO Q4H PRN PRN Reason: Pain or Fever Stop: 04/26/23 09:33 Last Admin: 03/28/23 07:55 Dose: 650 mg Al Hydrox/Mg Hydrox/Simethicone (Aluminum/Magnesium Susp 30 Ml Udc) 15 ml PO Q4H PRN PRN Reason: Dyspepsia Stop: 04/26/23 09:33 Famotidine (Famotidine 20 Mg Tab) 20 mg PO QPM JENA Stop: 04/26/23 20:59 Last Admin: 03/27/23 20:43 Dose: 20 mg Fluticasone Propionate (Fluticasone Propionate Na Spr 16 Gm Btl) 1 sprays NA HS PRN PRN Reason: ALLERIGES Stop: 04/26/23 20:59 Fluticasone/Vilanterol (Fluticasone/Vilanterol 100/25mcg 14 Puffs/Inhaler) 1 puffs INH QAM JENA Stop: 04/27/23 08:59 Guaifenesin (Guaifenesin 600 Mg Tabcr) 600 mg PO Q12 JENA Stop: 04/26/23 20:59 Last Admin: 03/27/23 20:44 Dose: 600 mg Heparin Sodium (Porcine) (Heparin Sod 5,000 Unit/0.5 Ml Vial) 5,000 units SQ Q12 JENA Stop: 04/26/23 20:59 Last Admin: 03/27/23 20:44 Dose: 5,000 units Levalbuterol HCl (Levalbuterol 1.25mg/0.5ml Neb) 1.25 mg NEB Q6H PRN; Protocol PRN Reason: sob Stop: 04/26/23 09:59 Magnesium Hydroxide (Magnesium Hydroxide Susp 30 Ml Udc) 30 ml PO Q12H PRN PRN Reason: Constipation Stop: 04/26/23 09:33 Ondansetron HCl (Ondansetron Inj 2 Mg/Ml 2 Ml Vial) 4 mg IV Q6H PRN PRN Reason: Nausea Stop: 04/26/23 09:33 Polyethylene Glycol (Polyethylene (Miralax) 17 Gm Pack) 17 gm PO DAILY PRN PRN Reason: Constipation Stop: 04/26/23 09:33 Prednisone (Prednisone 20 Mg Tab) 20 mg PO DAILY JENA Stop: 05/01/23 08:00
[2023-03-28] MEDS ORDERED: MAGNESIUM PO SCH (09:00)
[2023-03-28] MEDS: guaiFENesin 600 MG TABCR PO SCH ×2 (09:18→20:13)
[2023-03-28] MEDS: predniSONE 20 MG TAB PO SCH (09:18)
[2023-03-28] MEDS: HEPARIN SOD 5,000 UNIT/0.5 ML VIAL SQ SCH ×2 (09:18→20:13)
[2023-03-28] MEDS: FLUTICASONE/VILANTEROL 100/25MCG 14 PUFFS/INHALER INH SCH (09:18)
[2023-03-28] MEDS ORDERED: PREMARIN VAG CRM 14 APPLN/30 GM TUBE PV SCH (17:30)
[2023-03-28] MEDS: MULTIVITAMIN CHEWABLE TAB PO SCH (20:14)
[2023-03-28] MEDS: FAMOTIDINE 20 MG TAB PO SCH (21:35)
[2023-03-29 05:43] LABS: Hematocrit (blood only) 39.9 % (37.0-47.0); Hemoglobin 13.4 g/dl (12.0-16.0); Mean Corpuscular Hemoglobin 32.1 pg (25.0-34.0); Mean Corpuscular Hgb Conc 33.6 g/dL (32.0-36.0); Mean Corpuscular Volume 95.7 fL (80.0-100.0); Mean Platelet Volume 9.4 fL (9.4-12.4); Platelet Count 276 K/uL (130-400); RDW Coefficient of Variation 11.6 % (11.5-14.5); RDW Standard Deviation 40.6 fL (36.4-46.3); Red Blood Count 4.17 M/uL (4.20-5.40); White Blood Count 11.23 K/ul (4.8-10.8)
[2023-03-29 06:01] LABS: BUN Creatinine Ratio 25.4 (10-20); Calcium 9.7 mg/dl (8.6-10.3); Est GFR (African American) 107.7 ml/min; Est GFR (Non-African American) 92.9 ml/min; Magnesium 2.3 mg/dl (1.7-2.4); Phosphorus 3.5 mg/dl (2.5-4.9); Potassium 3.9 mmol/L (3.5-5.1)
[2023-03-29] MEDS: [UNRECOGNIZED DRUG - OTHER] PO SCH ×3 (07:51→17:41)
[2023-03-29] MEDS: MULTIVITAMIN CHEWABLE TAB PO SCH (07:52)
[2023-03-29] MEDS: predniSONE 20 MG TAB PO SCH (07:52)
[2023-03-29] MEDS: FLUTICASONE/VILANTEROL 100/25MCG 14 PUFFS/INHALER INH SCH (07:53)
[2023-03-29] MEDS: ACETAMINOPHEN 325 MG TAB PO PRN ×2 (08:01→19:58)
[2023-03-29] MEDS: guaiFENesin 600 MG TABCR PO SCH ×2 (08:01→19:58)
[2023-03-29] MEDS: HEPARIN SOD 5,000 UNIT/0.5 ML VIAL SQ SCH ×2 (08:02→19:58)
[2023-03-29] MEDS: POLYETHYLENE (MIRALAX) 17 GM PACK PO PRN (09:17)
--- NOTE | 2023-03-29 10:58 | Hospitalist Progress Note ---
Date of Service March 29, 2023 Assessment & Plan (1) Viral respiratory illness: Plan: 03/19 started on amoxicillin for sinusitis. No improvement over the last week (so doubt diagnosis of acute bacterial sinusitis) and was switched to cefdinir. No improvement, then 03/26 tested positive for RSV and adenovirus. Was advised to discontinue antibiotics and prednisone was ordered but patient admitted prior to starting. Workup to date includes CXR negative for acute cardiopulmonary disease Prednisone 20 mg given in ED; continue daily x5 days Will hold IVF for now and intermittently bolus when needed. --vitals are improved and she is improved clinically. Cont other supportive care options such as mucinex. (2) Chronic fatigue syndrome: Plan: chronic, stable. Definitely playing a role with weakness and fatigue in the background of her infections. Cont to encourage her to ambulate OOB and Pt/OT (3) Palpitations: Plan: appears to be resolved. Still slightly tachycardic but she is still somewhat ill. (4) Vertigo: Plan: Pt reports this is improved with rehydration overnight and symptom management. She reports a h/o vertigo in the past. No reports of vertigo today and she has been ambulating in the room today with greater ease. (5) Pulmonary nodule: Plan: followup imaging per PCP DVT proph: Heparin Full Code Dispo-to home in am. Crys Szymanski DO [facility] Hospitalist Admission and Anticipated Discharge Date Admission Date: March 27, 2023 Subjective Patient is a 62-year-old female admitted with fatigue, intermittent vertigo that has improved, congestion and cough present and worsening for the past 2 weeks secondary to RSV and adenovirus. She incidentally has a history of worsening ataxic gait that is being worked up by neurology as outpatient. She is improved today although still very weak. Son is at bedside and assists with history. She is requesting Tylenol. She reports a good appetite and is eating well and working with the [facility] to understand the gluten-free options. Physical Exam Physical Exam: CONSTITUTIONAL: WNWD, vitals as above, NAD EYES: normal conjunctivae, no scleral icterus ENT: external ear and nose normal, oropharynx clear, no TM abnormality, no maxillary or ethmoid sinus tenderness NECK: trachea midline, no lymphadenopathy, normal thyroid RESPIRATORY: clear to auscultation bilaterally with diminished breath sounds throughout, no crackles, rales or wheezes, normal respiratory effort, deep breaths trigger her to cough CARDIOVASCULAR: regular rate and rhythm, S1 and 2 heard without murmurs, gallops or rubs, no JVD CHEST: inspection of chest was normal GASTROINTESTINAL: soft, nontender, ND, no guarding MUSCULOSKELETAL: strength 5/5 throughout, head is normocephalic and atraumatic, SKIN: warm and dry NEUROLOGIC: CN 2-12 grossly intact, no sensory deficit, normal cognition, normal speech, no tremor PSYCHIATRIC: alert cooperative and oriented to person, place and time. Euthymic mood, makes good eye contact, language grossly intact, recent and remote memory grossly intact. Results & Data Results & Data Vital Signs (Past 12 Hours) Vital Signs Temp Pulse Pulse Resp BP BP Pulse Ox 03/29/23 09:35 03/29/23 07:34 36.7 C 84 18 106/68 98 03/29/23 07:28 95 H 03/29/23 03:51 36.5 C 90 18 98/61 L 98 03/29/23 01:56 79 O2 Del Method 03/29/23 09:35 Room Air 03/29/23 07:34 Room Air 03/29/23 07:28 03/29/23 03:51 Room Air 03/29/23 01:56 Laboratory Results Short CBC 03/29/23 Range/Units 04:45 WBC 11.23 H (4.8-10.8) K/ul Hgb 13.4 (12.0-16.0) g/dl Hct 39.9 (37.0-47.0) % Plt Count 276 (130-400) K/uL BMP 03/29/23 04:45 Sodium 134 L Potassium 3.9 Chloride 100 Carbon Dioxide 26 BUN 17 Creatinine 0.67 Glucose 88 Calcium 9.7 Medications Administered Current Inpatient Medications Acetaminophen (Acetaminophen 325 Mg Tab) 650 mg PO Q4H PRN PRN Reason: Pain or Fever Stop: 04/26/23 09:33 Last Admin: 03/29/23 08:01 Dose: 650 mg Al Hydrox/Mg Hydrox/Simethicone (Aluminum/Magnesium Susp 30 Ml Udc) 15 ml PO Q4H PRN PRN Reason: Dyspepsia Stop: 04/26/23 09:33 Estrogens Conjugated (Premarin Vag Crm 14 Appln/30 Gm Tube) 1 appln PV Q3D JENA Stop: 04/27/23 17:29 Last Admin: 03/28/23 18:45 Dose: 1 appln Famotidine (Famotidine 20 Mg Tab) 20 mg PO QPM [facility] Stop: 04/26/23 20:59 Last Admin: 03/28/23 21:35 Dose: 20 mg Fluticasone Propionate (Fluticasone Propionate Na Spr 16 Gm Btl) 1 sprays NA HS PRN PRN Reason: ALLERIGES Stop: 04/26/23 20:59 Fluticasone/Vilanterol (Fluticasone/Vilanterol 100/25mcg 14 Puffs/Inhaler) 1 puffs INH QAM [facility] Stop: 04/27/23 08:59 Last Admin: 03/29/23 07:53 Dose: 1 puffs Guaifenesin (Guaifenesin 600 Mg Tabcr) 600 mg PO Q12 [facility] Stop: 04/26/23 20:59 Last Admin: 03/29/23 08:01 Dose: 600 mg Heparin Sodium (Porcine) (Heparin Sod 5,000 Unit/0.5 Ml Vial) 5,000 units SQ Q12 JENA Stop: 04/26/23 20:59 Last Admin: 03/29/23 08:02 Dose: 5,000 units Levalbuterol HCl (Levalbuterol 1.25mg/0.5ml Neb) 1.25 mg NEB Q6H PRN; Protocol PRN Reason: sob Stop: 04/26/23 09:59 Magnesium Hydroxide (Magnesium Hydroxide Susp 30 Ml Udc) 30 ml PO Q12H PRN PRN Reason: Constipation Stop: 04/26/23 09:33 Multivitamins/Folic Acid/Vitamin C (Multivitamin Chewable Tab) 1 tab PO BID [facility] Stop: 04/27/23 20:59 Last Admin: 03/29/23 07:52 Dose: 1 tab Digest Ultimate ~ Non-Formulary Patient's Own Med 1 each PO AC [facility] Stop: 04/28/23 07:29 Last Admin: 03/29/23 07:51 Dose: 1 cap Ondansetron HCl (Ondansetron Inj 2 Mg/Ml 2 Ml Vial) 4 mg IV Q6H PRN PRN Reason: Nausea Stop: 04/26/23 09:33 Polyethylene Glycol (Polyethylene (Miralax) 17 Gm Pack) 17 gm PO DAILY PRN PRN Reason: Constipation Stop: 04/26/23 09:33 Last Admin: 03/29/23 09:17 Dose: 17 gm Prednisone (Prednisone 20 Mg Tab) 20 mg PO DAILY [facility] Stop: 05/01/23 08:00 Last Admin: 03/29/23 07:52 Dose: 20 mg
[2023-03-29] MEDS ORDERED: diphenhydrAMINE 50 MG/ML VIAL IV STA (15:23)
[2023-03-29] MEDS ORDERED: ASCORBIC ACID 500 MG TAB PO SCH (15:30)
[2023-03-29] MEDS ORDERED: [UNRECOGNIZED DRUG - OTHER] PO SCH (15:30)
[2023-03-29] MEDS ORDERED: SOOTHE EYE OP SCH (15:30)
[2023-03-29] MEDS: BONE UP PO SCH (19:58)
[2023-03-29] MEDS: FAMOTIDINE 20 MG TAB PO SCH (19:58)
[2023-03-29] MEDS: [UNRECOGNIZED DRUG - OTHER] PO SCH (19:59)
[2023-03-30] MEDS: FLUTICASONE/VILANTEROL 100/25MCG 14 PUFFS/INHALER INH SCH (06:03)
[2023-03-30] MEDS: [UNRECOGNIZED DRUG - OTHER] PO SCH (08:22)
[2023-03-30] MEDS: guaiFENesin 600 MG TABCR PO SCH (08:22)
[2023-03-30] MEDS: HEPARIN SOD 5,000 UNIT/0.5 ML VIAL SQ SCH (08:22)
[2023-03-30] MEDS: predniSONE 20 MG TAB PO SCH (08:22)
[2023-03-30] MEDS: [UNRECOGNIZED DRUG - OTHER] PO SCH ×2 (08:23→11:35)
[2023-03-30] MEDS: BONE UP PO SCH (08:25)
[2023-03-30] MEDS: POLYETHYLENE (MIRALAX) 17 GM PACK PO PRN (08:36)
[2023-03-30] MEDS: ACETAMINOPHEN 325 MG TAB PO PRN (08:37)
[2023-03-30] MEDS ORDERED: BUFFERED VITAMIN C PO SCH (09:00)
[2023-03-30] MEDS ORDERED: BENZONATATE 100 MG CAPSULE PO ONE (10:44)
[2023-03-30] MEDS ORDERED: LEVALBUTEROL 1.25MG/0.5ML NEB NEB STA (10:45)
[2023-03-30] MEDS ORDERED: LEVALBUTEROL 1.25 MG/3 ML NEB ONE (10:56)
[2023-03-30] MEDS ORDERED: [UNRECOGNIZED DRUG - OTHER] PO SCH (11:30)
--- NOTE | 2023-03-30 14:15 | Discharge Summary ---
Discharge Summary Date of Service March 30, 2023 Notes For Next Care Provider Medication Changes From Visit Benzonatate PRN Prednisone 20mg x 4 days Admission HPI Per Admitting Provider Nancy is a 62-year-old female that presented today with her son with complaints of fatigue, dizziness and chest tightness with shortness of breath that began this morning. Last week just before she was diagnosed with a sinus infection and was prescribed amoxicillin. She was not showing improvement and was switched to cefdinir. She tested positive for RSV and adenovirus yesterday and was advised to discontinue the cefdinir and prednisone was ordered but not started and her symptoms as outlined above started in the middle of the night at 4 AM. Patient has a history of SVT follows with doctors as already as an outpatient. An echo was ordered as an outpatient but rescheduled due to her illness. Additional history includes history of reactive airway disease, chronic fatigue syndrome and GI bleed. History of tobacco use. In the ED chest x-ray negative for acute cardiopulmonary disease, initial troponin negative 4.5, mild leukocytosis 11.67 which I suspect related to viral illness and slight hyponatremia which I suspect is related to viral illness and decreased p.o. intake. Pt received 1 L NSB and lev albuterol. ECG in ED does not indicate ischemic abnormalities and no ectopy noted. Patient is hemodynamically stable. Last [facility] appt was 01/14/23: It was noted that she was having palpitat ions for a week at that time and was in the emergency room on 12/14 with similar symptoms including palpitations and fatigue. She was given IV fluids and released from the ER. At that time she also reported chest discomfort intermittently. Reportedly outpatient records reveal a Zio patch was placed 12/18 and per patient Given patient's history of SVT and chronic fatigue syndrome patient reluctant to return home. Will continue rehydration and workup including mag, Phos, trend troponin x 1 blood cultures, sputum culture, UA with culture and echo. Will have nebs PRN and initiate flutter valve and continue daily steroids with some PT/OT for supportive care and evaluation. Patient will be admitted for further evaluation management. Please see A/P for further details. Admission Exam Per Admitting Provider Neuro: AAOx4, PERRLA, no aphagia, memory changes, CNII-XII grossly intact. some flushing in face/cheeks HEENT: head normocephalic, moist mucus membranes CV: S1/S2, (-) M/G/R, (-) edema, cap refill < 3 seconds Resp: Lungs CTA in all [place]. On RA GI: Abdomen S/NT/ND, Ax4 bowel sounds, (-) CVA tenderness Musculoskeletal: 5/5 B/L UE strength, 5/5 B/L LE strength. No gait disturbance. Frail presentation with protein malnourishment Skin: (-) rashes , (-) erythema. Psych: euthymic mood Principal Dx & Hospital Course #1 = Principal Diagnosis (1) Viral respiratory illness: (2) Chronic fatigue syndrome: (3) Palpitations: (4) Vertigo: (5) Pulmonary nodule: Plan 62-year-old female presenting with worsening fatigue dizziness and chest tightness with shortness of breath. She tested positive for RSV and adenovirus. Initial troponin was negative at 4.5 with a mild leukocytosis of 11.67 thought secondary to viral illness. She had slight hyponatremia with a sodium of 131 which was also related to viral illness and decreased p.o. intake. She received IV fluids with an improvement in her chronically low blood pressure and her sodium level. An EKG in the ER did not indicate any acute ischemic abnormality and there was no ectopy noted on her EKG or telemetry during her hospitalization. She was started on prednisone and declined cough syrup. On hospital day 3 she looked much improved with a resolution of initial symptoms aside from some persistent cough. She was ambulating around her room but was still coughing and wanted to stay 1 more day as she had just turned the corner. The following day which was day of discharge, she reported persistent coughing and a strange sensation after using the flutter valve. We spoke about the fact that mucus and inflammation comes along with bronchitis and the flutter valve may have shifted something there. Auscultation of her lungs was unremarkable. A short acting beta agonist nebulizer therapy was given along with benzonatate for her cough. This did not change her symptoms much, and she declined a chest x-ray as this would not pain management nurse. She had been hemodynamically stable and afebrile for over 48 hours and had never required oxygen therapy. She was ambulating and mentating at her baseline and tolerating p.o. She was discharged in stable condition with close primary care follow-up recommended and was continued on a few more days of prednisone for supportive care along with Tessalon Perles for her cough. Discharge Exam CONSTITUTIONAL: WNWD, vitals as above, NAD EYES: normal conjunctivae, no scleral icterus ENT: external ear and nose normal, oropharynx clear, no TM abnormality, no maxillary or ethmoid sinus tenderness NECK: trachea midline, no lymphadenopathy, normal thyroid RESPIRATORY: clear to auscultation bilaterally with diminished breath sounds throughout, no crackles, rales or wheezes, normal respiratory effort, deep breaths trigger her to cough CARDIOVASCULAR: regular rate and rhythm, S1 and 2 heard without murmurs, gallops or rubs, no JVD CHEST: inspection of chest was normal GASTROINTESTINAL: soft, nontender, ND, no guarding MUSCULOSKELETAL: strength 5/5 throughout, head is normocephalic and atraumatic, SKIN: warm and dry NEUROLOGIC: CN 2-12 grossly intact, no sensory deficit, normal cognition, normal speech, no tremor PSYCHIATRIC: alert cooperative and oriented to person, place and time. Euthymic mood, makes good eye contact, language grossly intact, recent and remote memory grossly intact. Updated Medication List Medication Instructions Recorded Confirmed Type polyethylene glycol 3350 17 17 gm PO QAM PRN Constipation 06/22/19 03/27/23 History gram/dose oral powder (Miralax) zinc oxide 15 mg disintegrating 15 mg PO QDL 06/22/19 03/27/23 History tablet digestive enzymes 1 cap PO BID 09/14/19 03/27/23 History Bone Up 1 tab PO BID 03/01/22 03/27/23 History famotidine 20 mg tablet (Pepcid) 20 mg PO QPM 03/01/22 03/27/23 History fluticasone furoate 100 1 inh inhalation QAM 03/01/22 03/27/23 History mcg-vilanterol 25 mcg/dose inhalation powder (Breo Ellipta) tavaborole 5 % topical solution 1 applic topical QAM 03/01/22 03/27/23 History with applicator (Kerydin) Sinus Calm 1 tab PO DIRECTED PRN Congestion 06/18/22 03/27/23 History Soothe Eye Drops 1 drp ophthalmic (eye) DIRECTED 06/18/22 03/27/23 History Magnesium 150 Mg 150 mg PO DAILY 03/27/23 03/27/23 History Multivitamin Gummies 1 ea PO BID 03/27/23 03/27/23 History Pearls Probiotic 1 cap PO DAILY 03/27/23 03/27/23 History ascorbic acid (vitamin C) 500 mg 500 mg PO DAILY 03/27/23 03/27/23 History tablet triamcinolone acetonide 55 mcg See Rx Instructions .Route .COMPLEX 03/27/23 03/27/23 History nasal spray aerosol (Nasacort) conjugated estrogens 0.625 mg/gram 1,000 mg vaginal Q3D 03/28/23 03/28/23 History vaginal cream (Premarin) benzonatate 100 mg capsule 100 mg PO TID PRN cough #20 caps 03/30/23 Rx prednisone 20 mg tablet 20 mg PO DAILY #4 tabs 03/30/23 Rx Hospital Stay Data Consultations 03/27/23 08:36 ED Decision to Admit Stat Pending Results Patient Have Any Pending Studies at Discharge: No Discharge Instructions Given to Patient (Per Discharging Provider) Please take all medications as instructed on discharge list below. You have been given a few more days of prednisone to take at home once daily. You were also given benzonatate pills to use up to three times daily as needed for cough. Please continue your Flonase during this time to help wtih any post nasal drip symptoms. It is recommended that you followup with your primary care provider within 1-2 weeks of hospital discharge to ensure you are doing well after returning home. It was a pleasure taking care of you! Please call if you have any questions or problems. You can reach a [facility] hospitalist on duty at [facility] 24 hours a day by calling [phone]. Take care of yourself. Crys Szymanski, [facility] Hospitalist Total Time Total Time Spent Total Time Spent (In Minutes): 60
== END 2023-03-30 15:30 | disposition home or self-care (01) | DRG 202 ==
LOC: ED 06:15 → SUATTDRO 09:34 → EDINP 09:34 → 2W 13:18 → 3E 03-29 18:20

== ENCOUNTER 2023-11-27 15:04 | Inpatient (IN) ==
[2023-11-27 16:27] LABS: Appearance Urine Clear (Clear); Bilirubin Urine Negative (Negative); Blood Urine Negative (Negative); Color Urine Yellow; Glucose Urine UA Negative (Negative); Ketones Urine 1+ (Negative); Leukocyte Esterase Urine Negative (Negative); Nitrite Urine Negative (Negative); Protein Urine Negative (Negative); Urobilinogen Urine Negative (Negative); pH Urine 7.5 (4.5-7.5)
[2023-11-27 16:34] LABS: Basophils # (auto) 0.05 K/uL (0.00-0.20); Basophils % (auto) 0.5 %; Eosinophils # (auto) 0.04 K/uL (0.00-0.50); Eosinophils % (auto) 0.4 %; Hematocrit (blood only) 40.9 % (37.0-47.0); Immature Granulocytes # (auto) 0.04 K/uL (0.01-0.20); Immature Granulocytes % (auto) 0.4 %; Lymphocytes # (auto) 1.32 K/uL (1.20-3.40); Lymphocytes % (auto) 13.3 %; Mean Corpuscular Hemoglobin 32.3 pg (25.0-34.0); Mean Corpuscular Hgb Conc 36.7 g/dL (32.0-36.0); Mean Platelet Volume 9.4 fL (9.4-12.4); Monocytes # (auto) 0.65 K/uL (0.11-0.59); Monocytes % (auto) 6.6 %; Neutrophils # (auto) 7.81 K/uL (1.40-6.50); Neutrophils % (auto) 78.8 %; Platelet Count 316 K/uL (130-400); RDW Coefficient of Variation 11.3 % (11.5-14.5); RDW Standard Deviation 36.1 fL (36.4-46.3); Red Blood Count 4.65 M/uL (4.20-5.40); White Blood Count 9.91 K/ul (4.8-10.8)
[2023-11-27 16:58] LABS: Partial Thromboplastin Ratio 1.1; Partial Thromboplastin Time 29 Seconds (21-31); Prothrombin Time 11.2 Seconds (9.0-12.0)
[2023-11-27 17:23] LABS: Albumin Globulin Ratio 2.3 (0.9-2); Albumin Level 5.5 gm/dl (3.4-5.0); BUN Creatinine Ratio 12.9 (10-20); Creatinine Clr Calc Pharmacy 52.4 ml/min; Est GFR (African American) 106.1 ml/min; Est GFR (Non-African American) 91.6 ml/min; Globulin 2.4 gm/dl (2.5-4.0); Potassium 4.2 mmol/L (3.5-5.1); Total Protein 7.9 gm/dl (6.0-8.3)
[2023-11-27] MEDS: SODIUM CHLORIDE 0.9% 1,000 ML IV SCH (18:06)
[2023-11-27 18:39] LABS: Appearance Urine Clear (Clear); Bilirubin Urine Negative (Negative); Blood Urine Negative (Negative); Color Urine Yellow; Glucose Urine UA Negative (Negative); Ketones Urine 2+ (Negative); Leukocyte Esterase Urine Negative (Negative); Nitrite Urine Negative (Negative); Protein Urine Negative (Negative); Specific Gravity Urine 1.011 (1.000-1.030); Urobilinogen Urine Negative (Negative)
[2023-11-27 19:13] LABS: Magnesium 2.1 mg/dl (1.7-2.4)
[2023-11-27 19:33] LABS: Sodium 120 mmol/L (136-145)
--- NOTE | 2023-11-27 19:48 | History & Physical Report ---
Date of Service November 27, 2023 Assessment & Plan (1) Acute hyponatremia: (2) Malnutrition: (3) Early satiety: (4) Dizziness: Plan Hyponatremia- Sodium 132 7 days ago-> 125 this morning->119 in ED->120. Serum osm 250, urine osm 320, chloride 86. Could be from dehydration vs SIADH due to bactrim and nausea. Bactrim stopped yesterday. Given IVF in ED and in 1 hour sodium had improved by 1 point. Will continue IVF NSS for now and recheck [id number]. If sodium continues to improve, will continue otherwise will need to stop IVF and consider 3% hypertonic saline. Nephrology consulted- unable to reach over the phone and tigertexted for further recommendation. Signed out to overnight colleague to follow up on that. UTI- urine clx 11/23 with E coli pansensitive and Enterococcus pansensitive. She was on bactrim which was switched to Augmentin today as OP. Will continue iv unasyn for now. Upper abd pressure/early satiety with nausea- ongoing symptoms. ?gastroparesis. Will continue pepcid. Will get lipase and CT A/P for evaluation Malnutrition/weight loss- BMI 19.5. States 96->92 lb. Not enough caloric intake. Regular diet. Dietitian eval Dizziness/off balance- ongoing issue. Seen by Neuro at [place] and OP work up unremarkable including MRI brain. Now uses walker. PT OT eval DVT ppx- sc lovenox Dispo- PCU on tele Full code Time spent- 75 mins History of Present Illness Chief Complaint: hyponatremia Primary Care Provider: Marlyn Garcia, 62 year old female who was sent by PCP to the ED for hyponatremia. Reviewed PCP note in [facility] and saw the patient at bedside. States symptoms ongoing for few weeks now. Started with upper abdominal pressure about a month ago with intermittent nausea. Then had bacterial vaginosis on 11/10 for which she was on metrogel started 11/13 for 5 days. She had decreased appetite and intermittent nausea with no fever, vomiting, diarrhea. Didn't improve and came to ED 11/19. Started on metron and was evaluated in OP clinic 11/23, urine clx was drawn and started on bactrim. It was subsequently changed to augmentin today as urine clx showed enterococcus and E coli and she took first dose this afternoon. There was mention of confusion but patient seems AAO and conversing appropriately. She states she has fullness of upper abdomen and early satiety. She has been trying to eat multiple times a day and trying to drink enough fluids. She continues to have vaginal burning intermittently. No fever or chills. She endorses being dizzy and off balance since Apr and has been evaluated by neurology at [place] and had MRI which was negative. Allergies Allergy/AdvReac Type Severity Reaction Status Date / Time milk Allergy Intermediate Gastrointestinal Verified 11/22/23 11:07 Upset omeprazole Allergy Intermediate RASH ON Verified 11/22/23 11:07 FACE gluten AdvReac Intermediate Gastrointestinal Verified 11/22/23 11:07 Upset oxycodone [From Percocet] AdvReac Intermediate RESTLESSNES Verified 11/22/23 11:07 S/INSOMNIA scopolamine AdvReac Intermediate Blurry Verified 11/22/23 11:07 Vision, Dizzy, Groggy, for weeks Home Medications Medication Instructions Recorded Confirmed Type polyethylene glycol 3350 17 17 gm PO Q OTHER DAY Constipation 06/22/19 11/22/23 History gram/dose oral powder (Miralax) digestive enzymes 1 cap PO BID 09/14/19 11/22/23 History Bone Up 1 tab PO BID 03/01/22 11/22/23 History famotidine 20 mg tablet (Pepcid) 20 mg PO HS 03/01/22 11/22/23 History fluticasone furoate 100 1 inh inhalation QAM 03/01/22 11/22/23 History mcg-vilanterol 25 mcg/dose inhalation powder (Breo Ellipta) tavaborole 5 % topical solution 1 applic topical QAM 03/01/22 11/22/23 History with applicator (Kerydin) Sinus Calm 1 tab PO DIRECTED PRN Congestion 06/18/22 11/22/23 History conjugated estrogens 0.625 mg/gram 0.3125 mg vaginal 2XWK 03/28/23 11/22/23 History vaginal cream (Premarin) Lactobacillus acidophilus 10 10,000 mmu cells PO DAILY 11/20/23 11/22/23 History billion cell capsule (Probiotic) levalbuterol tartrate 45 1 puff inhalation Q4H PRN Wheezing 11/20/23 11/22/23 History mcg/actuation aerosol inhaler magnesium oxide 300 mg PO DAILY 11/20/23 11/22/23 History multivitamin with minerals-folic 1 tab PO DAILY 11/20/23 11/22/23 History acid 200 mcg chewable tablet (Adult Multivitamin Gummies) propylene glycol-glycerin 0.6 1 drp ophthalmic (eye) .6-8XDAILY 11/20/23 11/22/23 History %-0.6 % eye drops in a dropperette zinc glycinate 7.5 mg chewable 15 mg PO DAILY 11/20/23 11/22/23 History tablet metronidazole 500 mg tablet 500 mg PO BID 7 days #14 tabs 11/22/23 11/22/23 Rx ondansetron 4 mg disintegrating 4 mg PO TID PRN nausea and 11/22/23 11/22/23 Rx tablet vomiting 7 days #21 tabs Past Med/Surg History Problem List Early satiety Malnutrition Dehydration (Acute) Acute hyponatremia (Acute) Underweight pt stated she "is underweight and dehydrates easily. she was given permission by the anesthesiologist and her opthalmologist to drink 8oz of water 3.5 hours prior to her surgery." Viral respiratory illness Vertigo Atypical chest pain (Acute) Respiratory syncytial virus (RSV) (Acute) Sinus infection Palpitations Dizziness (Acute) History of paroxysmal supraventricular tachycardia Right groin pain Chronic fatigue syndrome (Chronic Unknown) Unexplained weight loss (Acute Unknown) "06/10/11 gastric polyps, gastric angiodysplasia duodenal polyp " Abnormal CT scan, chest Mild intermittent asthma Musculoskeletal chest pain Inguinal hernia Impacted cerumen of both ears Biliary dyskinesia Gastrointestinal hemorrhage Postmenopausal atrophic vaginitis Postmenopausal bleeding Pressure sensation in right ear Vasomotor rhinitis Asthma Encounter for pre-operative examination S/P laparoscopic cholecystectomy Medical History Pulmonary nodule Chronic fatigue syndrome History of GI bleed Asthma Lyme disease Endometriosis Tinnitus Hyperacusis Eustachian tube dysfunction Reactive airway disease Surgical History Hx of cataract extraction Hx laparoscopic cholecystectomy (03/04/22) History of open reduction and internal fixation (ORIF) procedure Nausea and vomiting after administration of anesthetic agent History of anesthesia reaction Hx of laparoscopy History of repair of inguinal hernia S/P colonoscopy H/O toe surgery Family History Family/Other Diabetes Heart disease Cancer Lung cancer Father Cancer Colorectal cancer Heart disease Hypertension Mother Cancer Diabetes Uncle Cancer Sister Clotting disorder Social History Smoking Status: Never smoker Second Hand Exposure: Yes (hx); Do You Dip or Chew Tobacco: No; Hx Alcohol Use: No Hx Substance Use: No Preferred Language: Romansh Communication Ability: Effective Visual Impairment: No Limitations Roofer Helper Required: No Beliefs That Will Affect Care: None marital status: / Current Living Situation: Family current occupational status: unemployed and retired current occupation: Homemaker How many Children do You have: 2 Feels Safe at Home: Yes Diet: gluten free Diet Comment: Dairy free during the past year weight has: decreased > 10 lbs Assistive Devices: None Review of Systems Review of Systems: All systems reviewed & are unremarkable except as noted in Subjective Physical Exam Physical Exam: General: Lying comfortably in bed, not in distress, on room air HEENT: EOMI, JULIEN, MMM Chest: Clear breath sounds bilaterally, no wheezes or crackles CVS: Regular rate and rhythm, normal heart sounds, no murmur Abdomen: Soft, non tender, not distended, normal bowel sounds Neuro: Awake, alert, oriented, conversing well, non focal Extremities: No cyanosis, clubbing or edema Results & Data Results & Data Vital Signs (Past 12 Hours) Vital Signs Temp Pulse Pulse Resp BP BP Pulse Ox 11/27/23 17:56 85 11/27/23 17:35 86 24 132/92 96 11/27/23 15:22 36.6 C 92 H 18 132/59 L 98 O2 Del Method 11/27/23 17:56 11/27/23 17:35 Room Air 11/27/23 15:22 Room Air Laboratory Results Short CBC 11/27/23 Range/Units 16:01 WBC 9.91 (4.8-10.8) K/ul Hgb 15.0 (12.0-16.0) g/dl Hct 40.9 (37.0-47.0) % Plt Count 316 (130-400) K/uL BMP 11/27/23 11/27/23 16:01 19:06 Sodium 119 L* 120 L Potassium 4.2 Chloride 86 L Carbon Dioxide 22 BUN 9 Creatinine 0.70 Glucose 113 H Calcium 10.0 Liver Function 11/27/23 Range/Units 16:01 Total Bilirubin 1.0 (0.2-1.0) mg/dl AST 41 H (13-39) U/L ALT 47 (7-52) U/L Alkaline Phosphatase 66 (34-104) U/L Albumin 5.5 H (3.4-5.0) gm/dl Urine 11/27/23 11/27/23 Range/Units 16:01 18:11 Urine Color Yellow Yellow Urine Appearance Clear Clear (Clear) Urine pH 7.5 7.0 (4.5-7.5) Ur Specific [place] 1.010 1.011 (1.000-1.030) Urine Protein Negative Negative (Negative) Urine Glucose (UA) Negative Negative (Negative)
[2023-11-27] MEDS ORDERED: AMPICILLIN SOD/SULBACTAM SOD 3 GM VIAL IV SCH (20:00)
[2023-11-27] MEDS ORDERED: ONDANSETRON INJ 2 MG/ML 2 ML VIAL IV PRN (20:33)
[2023-11-27] MEDS: AMPICILLIN/SULBACTAM SOD 3,000 MG in SODIUM CHLOR 0.9% MINI-B 100 ML IV SCH (20:34)
[2023-11-27 21:09] LABS: Lipase 15 U/L (11-82)
--- NOTE | 2023-11-27 22:29 | Electrocardiogram Report ---
Test Reason : Blood Pressure : / mmHG Vent. Rate : 092 BPM Atrial Rate : 092 BPM P-R Int : 134 ms QRS Dur : 072 ms QT Int : 360 ms P-R-T Axes : 053 060 072 degrees QTc Int : 445 ms Normal sinus rhythm Normal ECG When compared with ECG of 27-MAR-2023 06:22, No significant change Confirmed by Lester Viveros ([id number]) on 11/27/2023 10:29:09 PM Referred By: Confirmed By:Lester Viveros
--- NOTE | 2023-11-27 22:56 | Emergency Department Note ---
Impression & Plan Acute hyponatremia, Weakness ED Provider Note CHIEF COMPLAINT: Weakness, slight confusion, low sodium HISTORY OF PRESENT ILLNESS: This 62-year-old female patient presents emergency department with complaints of weakness, patient states she has been treated for bacterial vaginosis recently with vaginal suppositories of metronidazole. She was switched to oral metronidazole mid treatment. She was then diagnosed with UTI and placed on Bactrim for the last several days. She states her doctor called today and said that she would need to switch antibiotics. The new antibiotic was picked up from the pharmacy, she has not started it yet. She does complain of dysuria. She has not had any significant vomiting, but states she is nauseated. Patient was contacted by her physician today and advised that her sodium was low. REVIEW OF SYSTEMS: A review of systems was performed with positives and pertinent negatives listed in the history of present illness. 10 systems were reviewed and are otherwise negative. ALLERGIES: see below MEDICATIONS: see below PMH: see below SOCIAL HISTORY: see below DDx: Poor p.o. intake, dehydration, electrolyte abnormality, UTI, viral illness, renal failure among others PHYSICAL EXAM: Vital signs reviewed. General: somewhat ill-appearing 62-year-old female, in no significant distress. HEENT: No scleral icterus, PERRLA, neck supple. Moist mucous membranes Cardiovascular: Regular rate and rhythm, no extra sounds. Pulmonary: Clear to auscultation bilaterally, normal work of breathing. Abdomen: Soft, nontender, nondistended, positive bowel sounds. Musculoskeletal: Atraumatic, no peripheral edema. Neurologic: Patient awake alert and oriented x 3, speech is clear. She was answering questions appropriately, but slightly slower than anticipated. Follows commands Skin: Warm, dry, no rash EMERGENCY DEPARTMENT COURSE/MDM: This patient was evaluated and appeared to be in no significant distress. IV access was obtained and laboratory work was drawn. The patient was placed on the rubber thread spooler and noted to be in a normal sinus rhythm. Laboratory work is significant for hyponatremia 119. Patient was hydrated normal saline solution at 75 mL/h. Urinalysis is clear. EKG reveals a normal sinus rhythm with normal ST segments. QTc is 445. No evidence of acute ischemia. Patient will require hospitalization and further evaluation due to the hyponatremia. Patient was discussed with the hospitalist service who will evaluate the patient for admission. Patient and family are aware of the plan and agreed. MONITORING: An order for cardiac monitoring was placed and the patient is noted to be in a normal sinus rhythm at 83 beats per minute. EKG: to my interpretation reveals a normal sinus rhythm at [address] segments. No PVC, no PAC. QTc is 445. When compared to previous dated March 27, 2023, no significant change was found. DISPOSITION: admission Past Med/Surg History Problem List Weakness (Acute) Acute hyponatremia (Acute) Chronic hyponatremia Early satiety Malnutrition Dehydration (Acute) Acute hyponatremia (Acute) Underweight pt stated she "is underweight and dehydrates easily. she was given permission by the anesthesiologist and her opthalmologist to drink 8oz of water 3.5 hours prior to her surgery." Viral respiratory illness Vertigo Atypical chest pain (Acute) Respiratory syncytial virus (RSV) (Acute) Sinus infection Palpitations Dizziness (Acute) History of paroxysmal supraventricular tachycardia Right groin pain Chronic fatigue syndrome (Chronic Unknown) Unexplained weight loss (Acute Unknown) "06/10/11 gastric polyps, gastric angiodysplasia duodenal polyp " Abnormal CT scan, chest Mild intermittent asthma Musculoskeletal chest pain Inguinal hernia Impacted cerumen of both ears Biliary dyskinesia Gastrointestinal hemorrhage Postmenopausal atrophic vaginitis Postmenopausal bleeding Pressure sensation in right ear Vasomotor rhinitis Asthma Encounter for pre-operative examination S/P laparoscopic cholecystectomy Medical History Pulmonary nodule Chronic fatigue syndrome History of GI bleed after endoscopy Asthma Lyme disease 2005 - treated Endometriosis Tinnitus Hyperacusis Eustachian tube dysfunction Reactive airway disease Surgical History Hx of cataract extraction rt. Hx laparoscopic cholecystectomy (03/04/22) Laparoscopic cholecystectomy. Dr. Alexandra History of open reduction and internal fixation (ORIF) procedure right hand 5th finger fx Nausea and vomiting after administration of anesthetic agent History of anesthesia reaction "trouble waking up" Hx of laparoscopy History of repair of inguinal hernia S/P colonoscopy H/O toe surgery Family History Family/Other Diabetes Heart disease Cancer Lung cancer Father Cancer Colorectal cancer Heart disease Hypertension Mother Cancer Diabetes Uncle Cancer Sister Clotting disorder Social History Smoking Status: Former smoker Smoking End Date: 45 years ago; Second Hand Exposure: Yes (hx); Do You Dip or Chew Tobacco: No; Hx Alcohol Use: No Hx Substance Use: No Preferred Language: Moldovan Communication Ability: Effective Visual Impairment: No Limitations Director Clinical Pharmacology Required: No Beliefs That Will Affect Care: None marital status: / Current Living Situation: Family Current Living Situation Comment: lives w/ son current occupational status: unemployed and retired current occupation: Homemaker How many Children do You have: 2 Feels Safe at Home: Yes Safety Concerns: Feels Safe At This Time Diet: gluten free Diet Comment: Dairy free during the past year weight has: decreased > 10 lbs Assistive Devices: None Allergies Allergies Allergy/AdvReac Type Severity Reaction Status Date / Time omeprazole Allergy Intermediate RASH ON Verified 11/22/23 11:07 FACE gluten AdvReac Intermediate Gastrointestinal Verified 11/22/23 11:07 Upset lactose AdvReac Intermediate Gastrointestinal Verified 11/28/23 16:05 Upset oxycodone [From Percocet] AdvReac Intermediate RESTLESSNES Verified 11/22/23 11:07 S/INSOMNIA scopolamine AdvReac Intermediate Blurry Verified 11/22/23 11:07 Vision, Dizzy, Groggy, for weeks Home Meds Home Medications Medication Instructions Recorded Confirmed polyethylene glycol 3350 17 17 gm PO Q OTHER DAY Constipation 06/22/19 11/22/23 gram/dose oral powder (Miralax) digestive enzymes 1 cap PO BID 09/14/19 11/22/23 Bone Up 1 tab PO BID 03/01/22 11/22/23 famotidine 20 mg tablet (Pepcid) 20 mg PO HS 03/01/22 11/22/23 fluticasone furoate 100 1 inh inhalation QAM 03/01/22 11/22/23 mcg-vilanterol 25 mcg/dose inhalation powder (Breo Ellipta) tavaborole 5 % topical solution 1 applic topical QAM 03/01/22 11/22/23 with applicator (Kerydin) Sinus Calm 1 tab PO DIRECTED PRN Congestion 06/18/22 11/22/23 conjugated estrogens 0.625 mg/gram 0.3125 mg vaginal 2XWK 03/28/23 11/22/23 vaginal cream (Premarin) Lactobacillus acidophilus 10 10,000 mmu cells PO DAILY 11/20/23 11/22/23 billion cell capsule (Probiotic) levalbuterol tartrate 45 1 puff inhalation Q4H PRN Wheezing 11/20/23 11/22/23 mcg/actuation aerosol inhaler magnesium oxide 300 mg PO DAILY 11/20/23 11/22/23 multivitamin with minerals-folic 1 tab PO DAILY 11/20/23 11/22/23 acid 200 mcg chewable tablet (Adult Multivitamin Gummies) propylene glycol-glycerin 0.6 1 drp ophthalmic (eye) .6-8XDAILY 11/20/23 11/22/23 %-0.6 % eye drops in a dropperette zinc glycinate 7.5 mg chewable 15 mg PO DAILY 11/20/23 11/22/23 tablet Previous Rx's Medication Instructions Recorded ondansetron 4 mg disintegrating 4 mg PO TID PRN nausea and 11/22/23 tablet vomiting 7 days #21 tabs fluconazole 150 mg tablet 150 mg PO Q3D 2 doses #2 tabs 11/30/23 Results & Data (ED) Vital Signs Vital Signs - 24 hr 11/27/23 15:22 11/27/23 17:35 11/27/23 17:56 Temperature 36.6 C Temperature Source Temporal Artery Scan Pulse Rate 92 H 85 Pulse Rate [Right Finger] 86 Respiratory Rate 18 24 Respiratory Effort / Characteristics Non-Labored Spontaneous Non-Labored Spontaneous Respiratory Depth Normal Normal Respiratory Pattern Regular Blood Pressure 132/59 L Blood Pressure [Right Arm] 132/92 Blood Pressure Mean 83 Blood Pressure Mean [Right Arm] 105 Blood Pressure Position Sitting Pulse Oximetry 98 96 Oxygen Delivery Method Room Air Room Air Sepsis Recent Fever Within 48 Hours No Sepsis New/Unexplained Change in Mental Status No Sepsis Action Taken by Nursing No Action Required Home Medications Current Medication List: was personally reviewed by me Laboratory Data Attestation: I reviewed the patient's lab results. 11/28/23 06:21 11/30/23 06:36 Lab Results 11/27/23 11/27/23 11/27/23 Range/Units 16:01 18:11 19:06 WBC 9.91 (4.8-10.8) K/ul RBC 4.65 (4.20-5.40) M/uL Hgb 15.0 (12.0-16.0) g/dl Hct 40.9 (37.0-47.0) % MCV 88.0 (80.0-100.0) fL MCH 32.3 (25.0-34.0) pg MCHC 36.7 H (32.0-36.0) g/dL RDW Std Deviation 36.1 L (36.4-46.3) fL RDW Coeff of Hong 11.3 L (11.5-14.5) % Plt Count 316 (130-400) K/uL MPV 9.4 (9.4-12.4) fL Immature Gran % (Auto) 0.4 % Neut % (Auto) 78.8 % Lymph % (Auto) 13.3 % Pine % (Auto) 6.6 % Eos % (Auto) 0.4 % Baso % (Auto) 0.5 % Neut # (Auto) 7.81 H (1.40-6.50) K/uL Lymph # (Auto) 1.32 (1.20-3.40) K/uL Pine # (Auto) 0.65 H (0.11-0.59) K/uL Eos # (Auto) 0.04 (0.00-0.50) K/uL Baso # (Auto) 0.05 (0.00-0.20) K/uL Immature Gran # (Auto) 0.04 (0.01-0.20) K/uL PT 11.2 (9.0-12.0) Seconds INR 1.0 (0.9-1.1) APTT 29 (21-31) Seconds PTT Ratio 1.1 Sodium 119 L* 120 L (136-145) mmol/L Potassium 4.2 (3.5-5.1) mmol/L Chloride 86 L (98-107) mmol/L Carbon Dioxide 22 (21-32) mmol/L Anion Gap 11 (3-11) BUN 9 (6-23) mg/dl Creatinine 0.70 (0.6-1.2) mg/dl Est Cr Clr Drug Dosing 52.4 ml/min Est GFR ( Amer) 106.1 ml/min Est GFR (Non-Af Amer) 91.6 ml/min BUN/Creatinine Ratio 12.9 (10-20) Glucose 113 H (70-99(Fasting)) mg/dl Osmolality 250 L (280-300) mOsm/kg Calcium 10.0 (8.6-10.3) mg/dl Magnesium 2.1 (1.7-2.4) mg/dl Total Bilirubin 1.0 (0.2-1.0) mg/dl AST 41 H (13-39) U/L ALT 47 (7-52) U/L Alkaline Phosphatase 66 (34-104) U/L Total Protein 7.9 (6.0-8.3) gm/dl Albumin 5.5 H (3.4-5.0) gm/dl Globulin 2.4 L (2.5-4.0) gm/dl Albumin/Globulin Ratio 2.3 H (0.9-2) Lipase 15 (11-82) U/L Urine Color Yellow Yellow Urine Appearance Clear Clear (Clear) Urine pH 7.5 7.0 (4.5-7.5) Ur Specific Gowen 1.010 1.011 (1.000-1.030) Urine Protein Negative Negative (Negative) Urine Glucose (UA) Negative Negative (Negative) Urine Ketones 1+ H 2+ H (Negative) Urine Blood Negative Negative (Negative) Urine Nitrite Negative Negative (Negative) Urine Bilirubin Negative Negative (Negative) Urine Urobilinogen Negative Negative (Negative) Ur Leukocyte Esterase Negative Negative (Negative) Urine Osmolality 320 L (500-800) mOsm/kg Administered Medications Discontinued Medications Fluticasone/Vilanterol (Fluticasone/Vilanterol 100/25mcg 14 Puffs/Inhaler) 1 puffs INH QAM [facility], 1928–1983 Stop: 12/28/23 08:59 Last Admin: 11/30/23 09:31 Dose: 1 puffs Documented By: Admin: 11/29/23 07:28 Dose: 1 puffs Documented By: Admin: 11/28/23 09:29 Dose: 1 puffs Documented By: DONALD Sodium Chloride (Nss) 1,000 mls @ 75 mls/hr IV .[id number] FOR[facility], 1928–1983 Stop: 12/27/23 17:59 Last Infusion: 11/30/23 07:20 Dose: Infused Documented By: Admin: 11/28/23 05:11 Dose: 75 mls/hr Documented By: Infusion: 11/28/23 03:10 Dose: Infused Documented By: Infusion: 11/28/23 00:31 Dose: 75 mls/hr Documented By: Admin: 11/27/23 18:06 Dose: 125 mls/hr Documented By: SMITH Ampicillin Sodium/Sulbactam Sodium 3,000 mg/ Sodium Chloride 100 mls @ 200 mls/hr IV Q6H JENA Stop: 12/02/23 19:59 Last Admin: 11/30/23 14:53 Dose: 200 mls/hr Documented By: Infusion: 11/30/23 10:18 Dose: Infused Documented By: Admin: 11/30/23 09:31 Dose: 200 mls/hr Documented By: Infusion: 11/30/23 03:28 Dose: Infused Documented By: Admin: 11/30/23 02:50 Dose: 200 mls/hr Documented By: Infusion: 11/29/23 19:56 Dose: Infused Documented By: Admin: 11/29/23 19:26 Dose: 200 mls/hr Documented By: Infusion: 11/29/23 18:09 Dose: Infused Documented By: Admin: 11/29/23 14:52 Dose: 200 mls/hr Documented By: Infusion: 11/29/23 08:35 Dose: Infused Documented By: Admin: 11/29/23 08:05 Dose: 200 mls/hr Documented By: Infusion: 11/29/23 03:04 Dose: Infused Documented By: Admin: 11/29/23 02:34 Dose: 200 mls/hr Documented By: Infusion: 11/28/23 21:32 Dose: Infused Documented By: Admin: 11/28/23 21:02 Dose: 200 mls/hr Documented By: Infusion: 11/28/23 13:52 Dose: Infused Documented By: Admin: 11/28/23 13:22 Dose: 200 mls/hr Documented By: Infusion: 11/28/23 08:06 Dose: Infused Documented By: Admin: 11/28/23 07:36 Dose: 200 mls/hr Documented By: Infusion: 11/28/23 03:31 Dose: Infused Documented By: Admin: 11/28/23 03:01 Dose: 200 mls/hr Documented By: Infusion: 11/27/23 21:06 Dose: Infused Documented By: ag equipment field service technician: 11/27/23 20:34 Dose: 200 mls/hr Documented By: MED Famotidine (Pepcid 20mg Iv Push) 20 mg in 5 mls @ 2.5 mls/min IV Q12H JENA Stop: 12/27/23 22:59 Last Admin: 11/30/23 12:26 Dose: 2.5 mls/min Documented By: Admin: 11/29/23 23:07 Dose: 2.5 mls/min Documented By: Admin: 11/29/23 11:37 Dose: 2.5 mls/min Documented By: Admin: 11/28/23 23:18 Dose: 2.5 mls/min Documented By: Admin: 11/28/23 09:30 Dose: 2.5 mls/min Documented By: Admin: 11/27/23 23:07 Dose: 2.5 mls/min Documented By: RICHARDSON Dextrose (D5w) 1,000 mls @ 200 mls/hr IV .Q5H JENA Stop: 12/28/23 07:59 Last Infusion: 11/30/23 07:19 Dose: Infused Documented By: Infusion: 11/28/23 19:12 Dose: 0 mls/hr Documented By: Admin: 11/28/23 16:48 Dose: 200 mls/hr Documented By: Infusion: 11/28/23 16:11 Dose: Infused Documented By: Admin: 11/28/23 09:30 Dose: 150 mls/hr Documented By: DONALD Sodium Chloride (Nss) 500 mls @ 75 mls/hr IV .Q6H40M JENA Stop: 11/29/23 17:39 Last Infusion: 11/30/23 06:56 Dose: Infused Documented By: Infusion: 11/29/23 18:10 Dose: 0 mls/hr Documented By: Admin: 11/29/23 11:38 Dose: 75 mls/hr Documented By: DONALD Lactobacillus Acidophilus (Advanced Probiotic 625 Mg Capsule) 1,250 mg PO DAILY JENA Stop: 12/28/23 08:59 Last Admin: 11/30/23 09:31 Dose: 1,250 mg Documented By: Admin: 11/29/23 07:29 Dose: 1,250 mg Documented By: Admin: 11/28/23 09:29 Dose: 1,250 mg Documented By: DONALD Potassium Chloride (Potassium Chloride Crtab 20 Meq Tabcr) 40 meq PO NOW STA Stop: 11/29/23 10:37 Last Admin: 11/29/23 11:37 Dose: 40 meq Documented By: DONALD Psyllium Hydrophilic Mucilloid (Psyllium Or Guar Gum Fiber 4gm Packet) 4 gm PO QAM JENA Stop: 12/29/23 10:59 Last Admin: 11/30/23 09:31 Dose: 4 gm Documented By: Admin: 11/29/23 11:38 Dose: 4 gm Documented By: DONALD Imaging Data Radiologist's Impression: Abdomen/Pelvis CT 11/27/23 20:32 Exam(s): CT ABDOMEN + PELVIS Without Contrast EXAM: CT Abdomen and Pelvis Without Intravenous Contrast CLINICAL HISTORY: persistent upper abd pain/pressure. TECHNIQUE: Axial computed tomography images of the abdomen and pelvis without intravenous contrast. CTDI is 7.45 mGy and DLP is 333.82 mGy-cm. Automated exposure control was utilized for the study. A dose lowering technique was utilized adhering to the principles of ALARA. COMPARISON: CT abdomen and pelvis without contrast dated 02/17/2023 FINDINGS: Lung bases: Unremarkable. No mass. No consolidation. ABDOMEN: Liver: Unremarkable. Gallbladder and bile ducts: Stable cholecystectomy. No ductal dilation. Pancreas: Unremarkable. No ductal dilation. Spleen: Unremarkable. No splenomegaly. Adrenals: Unremarkable. No mass. Kidneys and ureters: Unremarkable. No obstructing stones. No hydronephrosis. Stomach and bowel: No evidence for bowel obstruction. Evaluation the bowel mucosa is limited without contrast and respiratory artifact; however, no obvious significant asymmetry identified. Moderate stool burden. No appreciable diverticulitis. PELVIS: Appendix: A normal caliber appendix is noted along the medial aspect of the cecum. Bladder: Unremarkable. No stones. Reproductive: Unremarkable as visualized. ABDOMEN and PELVIS: Intraperitoneal space: Unremarkable. No free air. No significant fluid collection. Bones/joints: No acute fracture. No dislocation. Soft tissues: Unremarkable. Vasculature: Unremarkable. No abdominal aortic aneurysm. Lymph nodes: Unremarkable. No enlarged lymph nodes. IMPRESSION: 1. No evidence for bowel obstruction. Evaluation the bowel mucosa is limited without contrast and respiratory artifact; however, no obvious significant asymmetry identified. Moderate stool burden is of uncertain clinical significance but may represent a component of constipation. No appreciable diverticulitis. No free intraperitoneal fluid or pneumoperitoneum. Incidental normal caliber appendix. 2. No other significant abnormality identified involving the unenhanced abdomen or pelvis to suggest the patient's clinical symptoms. Electronically signed by: Twan Moore MD 11/28/23 00:24 AM Discharge Plan Visit Data Chief Complaint: Dehydration Stated Complaint: SEVERE DEHYDRATION AND MALNUTRITION, REF BY DOC ED Provider: Angelia Portillo Discharge Problem: Acute hyponatremia, Weakness Patient Disposition: Admitted As Inpatient Discharge Instructions Interventions: ED Discharge Assessment Last Done: 11/28/23 00:11
[2023-11-27] MEDS: FAMOTIDINE 20MG IV PUSH 20 MG/5 ML SYR IV SCH (23:07)
[2023-11-28 00:07] LABS: BUN Creatinine Ratio 10.9 (10-20); Calcium 9.7 mg/dl (8.6-10.3); Creatinine Clr Calc Pharmacy 57.3 ml/min; Est GFR (African American) 109.3 ml/min; Est GFR (Non-African American) 94.3 ml/min; Potassium 4.1 mmol/L (3.5-5.1)
[2023-11-28 00:08] LABS: BUN Creatinine Ratio 12.3 (10-20); Calcium 9.9 mg/dl (8.6-10.3); Creatinine Clr Calc Pharmacy 56.5 ml/min; Est GFR (African American) 108.7 ml/min; Est GFR (Non-African American) 93.8 ml/min
--- NOTE | 2023-11-28 00:25 | CT Scan Report ---
Exam(s): CT ABDOMEN + PELVIS Without Contrast EXAM: CT Abdomen and Pelvis Without Intravenous Contrast CLINICAL HISTORY: persistent upper abd pain/pressure. TECHNIQUE: Axial computed tomography images of the abdomen and pelvis without intravenous contrast. CTDI is 7.45 mGy and DLP is 333.82 mGy-cm. Automated exposure control was utilized for the study. A dose lowering technique was utilized adhering to the principles of ALARA. COMPARISON: CT abdomen and pelvis without contrast dated 02/17/2023 FINDINGS: Lung bases: Unremarkable. No mass. No consolidation. ABDOMEN: Liver: Unremarkable. Gallbladder and bile ducts: Stable cholecystectomy. No ductal dilation. Pancreas: Unremarkable. No ductal dilation. Spleen: Unremarkable. No splenomegaly. Adrenals: Unremarkable. No mass. Kidneys and ureters: Unremarkable. No obstructing stones. No hydronephrosis. Stomach and bowel: No evidence for bowel obstruction. Evaluation the bowel mucosa is limited without contrast and respiratory artifact; however, no obvious significant asymmetry identified. Moderate stool burden. No appreciable diverticulitis. PELVIS: Appendix: A normal caliber appendix is noted along the medial aspect of the cecum. Bladder: Unremarkable. No stones. Reproductive: Unremarkable as visualized. ABDOMEN and PELVIS: Intraperitoneal space: Unremarkable. No free air. No significant fluid collection. Bones/joints: No acute fracture. No dislocation. Soft tissues: Unremarkable. Vasculature: Unremarkable. No abdominal aortic aneurysm. Lymph nodes: Unremarkable. No enlarged lymph nodes. IMPRESSION: 1. No evidence for bowel obstruction. Evaluation the bowel mucosa is limited without contrast and respiratory artifact; however, no obvious significant asymmetry identified. Moderate stool burden is of uncertain clinical significance but may represent a component of constipation. No appreciable diverticulitis. No free intraperitoneal fluid or pneumoperitoneum. Incidental normal caliber appendix. 2. No other significant abnormality identified involving the unenhanced abdomen or pelvis to suggest the patient's clinical symptoms. Electronically signed by: Twan Moore MD 11/28/23 00:24 AM
[2023-11-28 03:15] LABS: BUN Creatinine Ratio 12.3 (10-20); Calcium 9.4 mg/dl (8.6-10.3); Creatinine Clr Calc Pharmacy 56.5 ml/min; Est GFR (African American) 108.7 ml/min; Est GFR (Non-African American) 93.8 ml/min
[2023-11-28 07:07] LABS: Phosphorus 3.5 mg/dl (2.5-4.9)
[2023-11-28 07:11] LABS: BUN Creatinine Ratio 10.3 (10-20); Calcium 8.8 mg/dl (8.6-10.3); Est GFR (African American) 107.1 ml/min; Est GFR (Non-African American) 92.4 ml/min; Potassium 4.2 mmol/L (3.5-5.1)
[2023-11-28 07:14] LABS: Hemoglobin 12.6 g/dl (12.0-16.0); Mean Corpuscular Hemoglobin 32.9 pg (25.0-34.0); Mean Corpuscular Hgb Conc 37.1 g/dL (32.0-36.0); Mean Corpuscular Volume 88.8 fL (80.0-100.0); Mean Platelet Volume 9.6 fL (9.4-12.4); Platelet Count 193 K/uL (130-400); RDW Coefficient of Variation 11.4 % (11.5-14.5); RDW Standard Deviation 36.4 fL (36.4-46.3); Red Blood Count 3.83 M/uL (4.20-5.40)
[2023-11-28] MEDS: FLUTICASONE/VILANTEROL 100/25MCG 14 PUFFS/INHALER INH SCH (09:29)
[2023-11-28] MEDS: ADVANCED PROBIOTIC 625 MG CAPSULE PO SCH (09:29)
[2023-11-28] MEDS: DEXTROSE 5% 1,000 ML IV SCH (09:30)
--- NOTE | 2023-11-28 09:33 | Hospitalist Progress Note ---
Date of Service November 28, 2023 Assessment & Plan (1) Acute hyponatremia: (2) Malnutrition: (3) Early satiety: (4) Dizziness: Plan Serum sodium of 120 on admission. Serum osm 250, urine osm 320, chloride 86. Could be from dehydration vs SIADH due to bactrim and nausea. Serum sodium overcorrected to 128 at 6 am; will start on D5. Will follow-up on BMP. Goal of correction is 6 to 8 mEq in 24 hours UTI- urine clx 11/23 with E coli pansensitive and Enterococcus pansensitive. She was on bactrim which was switched to Augmentin today as OP. Will continue iv unasyn for now. Upper abd pressure/early satiety with nausea- ongoing symptoms. ?gastroparesis. Will continue pepcid. CT abdomen/Pelvis didn't show any acute findings. Malnutrition/weight loss- BMI 19.5. States 96->92 lb. Not enough caloric intake. Regular diet. Dietitian eval Dizziness/off balance- ongoing issue. Seen by Neuro at [place] and OP work up unremarkable including MRI brain. Now uses walker. PT OT eval DVT ppx- sc lovenox Dispo- PCU on tele Full code Please note the above document was generated using voice recognition software. It may contain grammatical, syntax or spelling errors. Any formal questions or concerns about the content, text or information contained within the body of this dictation should be directly addressed to the provider for clarification Admission and Anticipated Discharge Date Admission Date: November 27, 2023 Subjective Patient seen and examined at bedside. Comfortable; not in distress. Denies fever, chills, chest pain, shortness of breath, abdominal pain or urinary symptoms. No significant overnight events Review of Systems Review of Systems: All systems reviewed & are unremarkable except as noted in Subjective Physical Exam Physical Exam: General: Lying comfortably in bed, not in distress, on room air HEENT: EOMI, JULIEN, MMM Chest: Clear breath sounds bilaterally, no wheezes or crackles CVS: Regular rate and rhythm, normal heart sounds, no murmur Abdomen: Soft, non tender, not distended, normal bowel sounds Neuro: Awake, alert, oriented, conversing well, non focal Extremities: No cyanosis, clubbing or edema Results & Data Results & Data Vital Signs (Past 12 Hours) Vital Signs Temp Pulse Pulse Resp BP BP Pulse Ox 11/28/23 08:28 36.4 C L 88 17 90/55 L 96 11/28/23 03:00 36.6 C 83 16 118/71 98 11/28/23 00:11 11/28/23 00:05 11/28/23 00:05 36.8 C 88 18 116/67 99 11/28/23 00:00 83 11/27/23 21:47 80 18 124/71 97 11/27/23 21:39 88 O2 Del Method 11/28/23 08:28 Room Air 11/28/23 03:00 Room Air 11/28/23 00:11 Room Air 11/28/23 00:05 Room Air 11/28/23 00:05 Room Air 11/28/23 00:00 11/27/23 21:47 Room Air 11/27/23 21:39
[2023-11-28 10:51] LABS: BUN Creatinine Ratio 12.1 (10-20); Calcium 8.9 mg/dl (8.6-10.3); Creatinine Clr Calc Pharmacy 55.6 ml/min; Est GFR (African American) 108.2 ml/min; Est GFR (Non-African American) 93.4 ml/min; Potassium 3.9 mmol/L (3.5-5.1)
[2023-11-28 15:58] LABS: BUN Creatinine Ratio 11.4 (10-20); Calcium 9.6 mg/dl (8.6-10.3); Creatinine Clr Calc Pharmacy 52.4 ml/min; Est GFR (African American) 106.1 ml/min; Est GFR (Non-African American) 91.6 ml/min; Potassium 3.6 mmol/L (3.5-5.1)
--- NOTE | 2023-11-28 17:58 | Nephrology Consultation ---
Date of Consultation November 28, 2023 Assessment & Plan (1) Chronic hyponatremia: chronic (eg > 48 hr duration) hyponatremia moderate now but presented w/ severe range at 119; corrected overly quickly w/ NS and today task has been to slow/reverse correction w/ D5W >target would be sNa no more than 125 by 1600 today and she was 126 at 1500 so now corrected to appropriate range >target sNa for AM would be no more than 128 RECOMMEND -stop D5W -recheck BMP pending >> replete K to 4.0 based on result >would let her reequiliibrate overnight and not check further labs -fluid limit 1.2 L (small build) toward which protein shakes do not count Orders in; care coordinated w/ Dr Buenrostro regarding mgt; we are in agreement. (2) Malnutrition: longstanding issue protien shakes as above defer furthe rwork up to primary History of Present Illness Reason for Consultation: hyponatremia Requesting Physician: Dr Carlisle Attending Physician: Duke Buenrostro MD History of Present Illness 62 y/o F whom I'm asked to see for hyponatremia was sent to [facility] after OP labs showed serum sodium of 125, down from 132 one week prior. PMH includes moderate malnutrition of unclear cause and underweight ; Palpitations and paroxysmal atrial tachycardia, chronic fatigue, chronic headaches, GERD, reactive airway disease, reformed smoker. For several weeks has struggled w/ bacterial vaginosis and LUTS. Urine cx 11/23 grew multiple species; treated w/ bactrim 3 day course starting 11/25. Per OP notes, her son has worried about her poor po intake for > a year. OP chart shows BMI of about 19 over the past year and similar BMI or slightly lower in months/years prior. s/p lap zuleyka. ? ambulatory dysfunction, uses walker Pt was seen for acute visit w/ PCP and noted to have poor po intake x several weeks, nausea; no f/c, no diarrhea. did report some challenges walking and worsened vertigo on 11/25 also w/ more epigastric abdominal pressure at that time. She tells me that for the past several weeks she has been unable to concentrate. Seen in ER 11/19 after presenting w/ c/o "dehydration" and sNa 132 as OP. was given 1L NS and d/c home for OP f/u. tells me she's been barely able to eat for several weeks, that she's taking broth, coconut water, apple juice but hard to keep solid food down. Presenting sodium at 1600 yesterday here was 119 w/ K 4 and normal creatinine. at 0600 was 128 after pt received NS all night. she was changed to D5W @200 mL hourly this AM d/t overly rapid correction of serum sodium. CT a/p w/o acute process. Patient evaluated this AM and care reviewed w/ Dr Buenrostro at that time. Allergies Allergy/AdvReac Type Severity Reaction Status Date / Time omeprazole Allergy Intermediate RASH ON Verified 11/22/23 11:07 FACE gluten AdvReac Intermediate Gastrointestinal Verified 11/22/23 11:07 Upset lactose AdvReac Intermediate Gastrointestinal Verified 11/28/23 16:05 Upset oxycodone [From Percocet] AdvReac Intermediate RESTLESSNES Verified 11/22/23 11:07 S/INSOMNIA scopolamine AdvReac Intermediate Blurry Verified 11/22/23 11:07 Vision, Dizzy, Groggy, for weeks Home Medications Medication Instructions Recorded Confirmed Type polyethylene glycol 3350 17 17 gm PO Q OTHER DAY Constipation 06/22/19 11/22/23 History gram/dose oral powder (Miralax) digestive enzymes 1 cap PO BID 09/14/19 11/22/23 History Bone Up 1 tab PO BID 03/01/22 11/22/23 History famotidine 20 mg tablet (Pepcid) 20 mg PO HS 03/01/22 11/22/23 History fluticasone furoate 100 1 inh inhalation QAM 03/01/22 11/22/23 History mcg-vilanterol 25 mcg/dose inhalation powder (Breo Ellipta) tavaborole 5 % topical solution 1 applic topical QAM 03/01/22 11/22/23 History with applicator (Kerydin) Sinus Calm 1 tab PO DIRECTED PRN Congestion 06/18/22 11/22/23 History conjugated estrogens 0.625 mg/gram 0.3125 mg vaginal 2XWK 03/28/23 11/22/23 History vaginal cream (Premarin) Lactobacillus acidophilus 10 10,000 mmu cells PO DAILY 11/20/23 11/22/23 History billion cell capsule (Probiotic) levalbuterol tartrate 45 1 puff inhalation Q4H PRN Wheezing 11/20/23 11/22/23 History mcg/actuation aerosol inhaler magnesium oxide 300 mg PO DAILY 11/20/23 11/22/23 History multivitamin with minerals-folic 1 tab PO DAILY 11/20/23 11/22/23 History acid 200 mcg chewable tablet (Adult Multivitamin Gummies) propylene glycol-glycerin 0.6 1 drp ophthalmic (eye) .6-8XDAILY 11/20/23 11/22/23 History %-0.6 % eye drops in a dropperette zinc glycinate 7.5 mg chewable 15 mg PO DAILY 11/20/23 11/22/23 History tablet metronidazole 500 mg tablet 500 mg PO BID 7 days #14 tabs 11/22/23 11/22/23 Rx ondansetron 4 mg disintegrating 4 mg PO TID PRN nausea and 11/22/23 11/22/23 Rx tablet vomiting 7 days #21 tabs Patient History Medical History Pulmonary nodule Chronic fatigue syndrome History of GI bleed after endoscopy Asthma Lyme disease 2005 - treated Endometriosis Tinnitus Hyperacusis Eustachian tube dysfunction Reactive airway disease Surgical History Hx of cataract extraction rt. Hx laparoscopic cholecystectomy (03/04/22) Laparoscopic cholecystectomy. Dr. Alexandra History of open reduction and internal fixation (ORIF) procedure right hand 5th finger fx Nausea and vomiting after administration of anesthetic agent History of anesthesia reaction "trouble waking up" Hx of laparoscopy History of repair of inguinal hernia S/P colonoscopy H/O toe surgery Family History Family/Other Diabetes Heart disease Cancer Lung cancer Father Cancer Colorectal cancer Heart disease Hypertension Mother Cancer Diabetes Uncle Cancer Sister Clotting disorder Social History Smoking Status: Former smoker Smoking End Date: 45 years ago; Second Hand Exposure: Yes (hx); Do You Dip or Chew Tobacco: No; Hx Alcohol Use: No Hx Substance Use: No Preferred Language: Turkmen Communication Ability: Effective Visual Impairment: No Limitations Shook Machine Operator Required: No Beliefs That Will Affect Care: None marital status: / Current Living Situation: Family Current Living Situation Comment: lives w/ son current occupational status: unemployed and retired current occupation: Homemaker How many Children do You have: 2 Feels Safe at Home: Yes Safety Concerns: Feels Safe At This Time Diet: gluten free Diet Comment: Dairy free during the past year weight has: decreased > 10 lbs Assistive Devices: None Review of Systems 2 Review of Systems: All systems reviewed & are unremarkable except as noted in HPI & below Physical Exam 2 Constitutional: well developed (walker at bedside), + thin, + frail appearing and comfortable; no acute distress Eyes: EOM intact bilaterally ENMT: Ears: no external ear abnormality Nose: no external nose abnormality Mouth: + dry oral mucous membranes Neck: no nuchal rigidity Respiratory: normal respiratory effort Auscultation: + diminished lung sounds Cardiovascular: RRR, no murmur, no edema Gastrointestinal (Abdomen): Inspection/Auscultation: normal bowel sounds P ercussion/Palpation: + abdomen tender (moderate epigastric w/o r/g) and abdomen soft Musculoskeletal: Extremities: strength 5/5 throughout Skin: no rashes, warm and dry Neurologic: ferris, fluent speech, no tremor Psychiatric: Orientation: alert and oriented x 3 Results & Data Vital Signs (Past 12 Hours) Vital Signs Temp Pulse Resp BP Pulse Ox O2 Del Method 11/28/23 15:36 36.7 C 79 18 102/67 99 Room Air 11/28/23 10:59 36.6 C 82 17 91/55 L 99 Room Air 11/28/23 08:28 36.4 C L 88 17 90/55 L 96 Room Air Laboratory Results 11/28/23 06:21 11/28/23 15:16 sOsms 250 uOsm [address] a/p non con 1. No evidence for bowel obstruction. Evaluation the bowel mucosa is limited without contrast and respiratory artifact; however, no obvious significant asymmetry identified. Moderate stool burden is of uncertain clinical significance but may represent a component of constipation. No appreciable diverticulitis. No free intraperitoneal fluid or pneumoperitoneum. Incidental normal caliber appendix. 2. No other significant abnormality identified involving the unenhanced abdomen or pelvis to suggest the patient's clinical symptoms.
[2023-11-28 19:55] LABS: BUN Creatinine Ratio 10.1 (10-20); Calcium 9.8 mg/dl (8.6-10.3); Creatinine Clr Calc Pharmacy 54.7 ml/min; Est GFR (African American) 106.6 ml/min; Potassium 3.7 mmol/L (3.5-5.1)
--- NOTE | 2023-11-29 09:16 | Hospitalist Progress Note ---
Date of Service November 29, 2023 Assessment & Plan (1) Acute hyponatremia: (2) Malnutrition: (3) Early satiety: (4) Dizziness: Plan Serum sodium of 120 on admission. Serum osm 250, urine osm 320, chloride 86. Could be from dehydration vs SIADH due to bactrim and nausea. Initially, serum sodium overcorrected ; patient was started on D5. Serum sodium correcting appropriately at this time. BMP daily UTI- urine clx 11/23 with E coli pansensitive and Enterococcus pansensitive. She was on bactrim which was switched to Augmentin today as OP. Will continue iv unasyn for now. Upper abd pressure/early satiety with nausea- ongoing symptoms. ?gastroparesis. Will continue pepcid. CT abdomen/Pelvis didn't show any acute findings. Malnutrition/weight loss- BMI 19.5. States 96->92 lb. Not enough caloric intake. Regular diet. Dietitian evaluation done. Dizziness/off balance- ongoing issue. Seen by Neuro at [place] and OP work up unremarkable including MRI brain. Now uses walker. PT OT eval DVT ppx- sc lovenox Dispo- PCU on tele Full code Please note the above document was generated using voice recognition software. It may contain grammatical, syntax or spelling errors. Any formal questions or concerns about the content, text or information contained within the body of this dictation should be directly addressed to the provider for clarification Admission and Anticipated Discharge Date Admission Date: November 27, 2023 Subjective Patient seen and examined at bedside. Comfortable; not in distress. Denies fever, chills, chest pain, shortness of breath, abdominal pain or urinary symptoms. Review of Systems Review of Systems: All systems reviewed & are unremarkable except as noted in Subjective Physical Exam Physical Exam: General: Lying comfortably in bed, not in distress, on room air HEENT: EOMI, JULIEN, MMM Chest: Clear breath sounds bilaterally, no wheezes or crackles CVS: Regular rate and rhythm, normal heart sounds, no murmur Abdomen: Soft, non tender, not distended, normal bowel sounds Neuro: Awake, alert, oriented, conversing well, non focal Extremities: No cyanosis, clubbing or edema Results & Data Results & Data Vital Signs (Past 12 Hours) Vital Signs Temp Pulse Resp BP BP Pulse Ox O2 Del Method 11/29/23 07:35 36.6 C 75 16 108/67 96 Room Air 11/29/23 02:37 36.5 C 79 16 97/63 L 98 Room Air 11/28/23 23:04 36.6 C 76 18 104/66 98 Room Air
[2023-11-29 10:35] LABS: Calcium 9.3 mg/dl (8.6-10.3); Potassium 3.4 mmol/L (3.5-5.1)
[2023-11-29 10:41] LABS: BUN Creatinine Ratio 13.5 (10-20); Est GFR (African American) 99.2 ml/min; Est GFR (Non-African American) 85.6 ml/min
--- NOTE | 2023-11-29 11:36 | Nephrology Progress Note ---
Date of Service November 29, 2023 Assessment & Plan Admission and Anticipated Discharge Date Admission Date: November 27, 2023 Subjective Assessment & Plan (1) Chronic hyponatremia: chronic hyponatremia moderate now but presented with severe range at 119. Initially corrected quickly w/ NS and thenhas been reversed and slowed . Now na 130 and we are back on track. At this level no need to worry about rate of correction anymore Continue NS at 75/hr. Given easy correction with NS , looks like a true na deficit from nutritional cause. Can do renal panel + mag once daily in AM (2) Malnutrition: longstanding issue protein shakes as above Consider GI/Psych/Nutrition formal evaluation for the underlying cause as very likely to have recurrence S---No new issues. Feels weak. Physical Exam Constitutional: well developed (walker at bedside), + thin, + frail appearing and comfortable; no acute distress Eyes: EOM intact bilaterally ENMT: Ears: no external ear abnormality Nose: no external nose abnormality Mouth: + dry oral mucous membranes Neck: no nuchal rigidity Respiratory: normal respiratory effort Auscultation: + diminished lung sounds Cardiovascular: RRR, no murmur, no edema Gastrointestinal (Abdomen): Inspection/Auscultation: normal bowel sounds Percussion/Palpation: + abdomen tender (moderate epigastric w/o r/g) and abdomen soft Musculoskeletal: Extremities: strength 5/5 throughout Skin: no rashes, warm and dry Neurologic: ferris, fluent speech, no tremor Psychiatric: Orientation: alert and oriented x 3 Results & Data Vital Signs (Past 12 Hours) Vital Signs Temp Pulse Resp BP BP Pulse Ox O2 Del Method 11/29/23 10:58 36.8 C 84 16 99/61 L 96 Room Air 11/29/23 07:35 36.6 C 75 16 108/67 96 Room Air 11/29/23 02:37 36.5 C 79 16 97/63 L 98 Room Air
[2023-11-29] MEDS: POTASSIUM CHLORIDE CRTAB 20 MEQ TABCR PO STA (11:37)
[2023-11-29] MEDS: SODIUM CHLORIDE 0.9% 500 ML IV SCH (11:38)
[2023-11-29] MEDS: PSYLLIUM or GUAR GUM FIBER 4GM PACKET PO SCH (11:38)
[2023-11-30 07:34] LABS: Albumin Level 4.2 gm/dl (3.4-5.0); BUN Creatinine Ratio 18.2 (10-20); Calcium 9.1 mg/dl (8.6-10.3); Creatinine Clr Calc Pharmacy 57.2 ml/min; Est GFR (African American) 108.2 ml/min; Est GFR (Non-African American) 93.4 ml/min; Magnesium 2.2 mg/dl (1.7-2.4); Phosphorus 3.8 mg/dl (2.5-4.9)
--- NOTE | 2023-11-30 09:03 | Hospitalist Progress Note ---
Date of Service November 30, 2023 Assessment & Plan (1) Acute hyponatremia: (2) Malnutrition: (3) Early satiety: (4) Dizziness: Plan Serum sodium of 120 on admission. Serum osm 250, Urine osm 320, chloride 86. Could be from dehydration vs SIADH due to bactrim and nausea. Initially, serum sodium overcorrected ; patient was started on D5. Sodium of 132 on discharge. I discussed importance of fluid limit and increase intake of food/protein to maintain serum sodium level as outpatient. Patient verbalized understanding and is agreeable with the plan Acute UTI urine clx 11/23 with E coli pansensitive and Enterococcus pansensitive. She was on bactrim which was switched to Augmentin . Was treated with Unasyn while inpatient. Discussed with patient to continue Augmentin for 2 more days to complete the antibiotic course Severe malnutrition- BMI 19.5. States 96->92 lb. Not enough caloric intake. Regular diet. Dietitian evaluation done while inpatient Dizziness/off balance- ongoing issue. Seen by Neuro at [place] and OP work up u nremarkable including MRI brain. Now uses walker. PT OT eval DVT ppx- sc lovenox Dispo- PCU on tele Full code Please note the above document was generated using voice recognition software. It may contain grammatical, syntax or spelling errors. Any formal questions or concerns about the content, text or information contained within the body of this dictation should be directly addressed to the provider for clarification Admission and Anticipated Discharge Date Admission Date: November 27, 2023 Subjective Patient seen and examined at bedside. Comfortable; not in distress. Denies fever, chills, chest pain, shortness of breath, abdominal pain or urinary symptoms. No significant overnight events Review of Systems Review of Systems: All systems reviewed & are unremarkable except as noted in Subjective Physical Exam Physical Exam: General: Lying comfortably in bed, not in distress, on room air HEENT: EOMI, JULIEN, MMM Chest: Clear breath sounds bilaterally, no wheezes or crackles CVS: Regular rate and rhythm, normal heart sounds, no murmur Abdomen: Soft, non tender, not distended, normal bowel sounds Neuro: Awake, alert, oriented, conversing well, non focal Extremities: No cyanosis, clubbing or edema Results & Data Results & Data Vital Signs (Past 12 Hours) Vital Signs Temp Pulse Pulse Resp BP BP Pulse Ox 11/30/23 07:34 36.4 C L 70 16 97/60 L 97 11/30/23 03:26 36.5 C 77 16 105/67 98 11/30/23 02:20 71 11/29/23 22:39 36.7 C 75 16 107/70 97 O2 Del Method 11/30/23 07:34 Room Air 11/30/23 03:26 Room Air 11/30/23 02:20 11/29/23 22:39 Room Air
--- NOTE | 2023-11-30 13:54 | Discharge Summary ---
Date of Service November 30, 2023 Admission HPI Per Admitting Provider 62 year old female who was sent by PCP to the ED for hyponatremia. Reviewed PCP note in Epic and saw the patient at bedside. States symptoms ongoing for few weeks now. Started with upper abdominal pressure about a month ago with intermittent nausea. Then had bacterial vaginosis on 11/10 for which she was on metrogel started 11/13 for 5 days. She had decreased appetite and intermittent nausea with no fever, vomiting, diarrhea. Didn't improve and came to ED 11/19. Started on metron and was evaluated in OP clinic 11/23, urine clx was drawn and started on bactrim. It was subsequently changed to augmentin today as urine clx showed enterococcus and E coli and she took first dose this afternoon. There was mention of confusion but patient seems AAO and conversing appropriately. She states she has fullness of upper abdomen and early satiety. She has been trying to eat multiple times a day and trying to drink enough fluids. She continues to have vaginal burning intermittently. No fever or chills. She endorses being dizzy and off balance since Apr and has been evaluated by neurology at [place] and had MRI which was negative. Admission Exam Per Admitting Provider General: Lying comfortably in bed, not in distress, on room air HEENT: EOMI, JULIEN, MMM Chest: Clear breath sounds bilaterally, no wheezes or crackles CVS: Regular rate and rhythm, normal heart sounds, no murmur Abdomen: Soft, non tender, not distended, normal bowel sounds Neuro: Awake, alert, oriented, conversing well, non focal Extremities: No cyanosis, clubbing or edema Principal Diagnosis Hyponatremia Acute UTI Discharge Exam General: Lying comfortably in bed, not in distress, on room air HEENT: EOMI, JULIEN, MMM Chest: Clear breath sounds bilaterally, no wheezes or crackles CVS: Regular rate and rhythm, normal heart sounds, no murmur Abdomen: Soft, non tender, not distended, normal bowel sounds Neuro: Awake, alert, oriented, conversing well, non focal Extremities: No cyanosis, clubbing or edema Discharge Data Allergies Allergy/AdvReac Type Severity Reaction Status Date / Time omeprazole Allergy Intermediate RASH ON Verified 11/22/23 11:07 FACE gluten AdvReac Intermediate Gastrointestinal Verified 11/22/23 11:07 Upset lactose AdvReac Intermediate Gastrointestinal Verified 11/28/23 16:05 Upset oxycodone [From Percocet] AdvReac Intermediate RESTLESSNES Verified 11/22/23 11:07 S/INSOMNIA scopolamine AdvReac Intermediate Blurry Verified 11/22/23 11:07 Vision, Dizzy, Groggy, for weeks Consultations 11/27/23 18:27 ED Decision to Admit Stat 11/27/23 20:36 Consult Nephrology Stat Ordered Studies 11/27/23 20:32 CT abd pelvis wo con Urgent Hospital Course (1) Acute hyponatremia: (2) Malnutrition: (3) Early satiety: (4) Dizziness: Plan Serum sodium of 120 on admission. Serum osm 250, Urine osm 320, chloride 86. Could be from dehydration vs SIADH due to bactrim and nausea. Initially, serum sodium overcorrected ; patient was started on D5. Sodium of 132 on discharge. I discussed importance of fluid limit and increase intake of food/protein to maintain serum sodium level as outpatient. Patient verbalized understanding and is agreeable with the plan Acute UTI urine clx 11/23 with E coli pansensitive and Enterococcus pansensitive. She was on bactrim which was switched to Augmentin . Was treated with Unasyn while inpatient. Discussed with patient to continue Augmentin for 3 more days to complete the antibiotic course Prescribed 2 dose of oral fluconazole for yeast infection at discharge after discussion with the patient. Please note the above document was generated using voice recognition software. It may contain grammatical, syntax or spelling errors. Any formal questions or concerns about the content, text or information contained within the body of this dictation should be directly addressed to the provider for clarification Total Time Total Time Spent Total Time Spent (In Minutes): 35 Total Time Includes: Examination of the Patient, Discharge Planning, Medication Reconciliation, Communication With Other Providers and Other Discharge Plan Discharge Items Patient Disposition: Home - Self-Care Reason For Visit: HYPONATREMIA Discharge Diagnosis: Hyponatremia Acute UTI Activity: Resume your previous activity Non-emergency contact: Primary Care Provider Call non-emergency contact if: you have any medication questions and your symptoms worsen Follow-up/Referrals: Marlyn Garcia, [Primary Care Provider] - Diet: Regular Fluids: 1500ml (6 cups) Addtl Attending Provider Instructions: You were admitted to the hospital due to low sodium level. The likely cause for the low sodium level is increase fluid intake and decrease food intake. Please continue to limit fluid intake to 1500 cc. You were treated with IV antibiotics during the hospitalization for UTI. You need to continue amoxicillin for 3 more days to complete the treatment course [employer] Recommendations 1) Continue a Regular diet ( gluten & lactose restricted) 2) Drink 4 oz Boost GC ( vanilla) BIDM * will not count towards fluid restrict ion* = 190 kcal, 16g protein/day 3) At night, have a snack of a hard cooked egg & blueberries -> will provide ~ 125 kcal, 6g protein 4) Take Multivitamin daily. For constipation, use psyllium husk as fiber daily. Use MiraLAX only as needed if you continue to feel constipated You are prescribed Fluconazole 150mg every 3 days for 2 days for possible yeast infection. Pending Studies at Discharge: No Stand-Alone Forms: My [facility] [employer], Smoking Cessation Medications and DC Order Prescriptions: New fluconazole 150 mg tablet 150 mg PO Q3D Qty: 2 0RF Continued polyethylene glycol 3350 [Miralax] 17 gram/dose powder 17 gm PO Q OTHER DAY digestive enzymes Capsule 1 cap PO BID tavaborole [Kerydin] 5 % solution with applicator 1 applic topical QAM famotidine [Pepcid] 20 mg tablet 20 mg PO HS fluticasone furoate-vilanterol [Breo Ellipta] 100-25 mcg/dose blister with de vice 1 inh inhalation QAM ondansetron 4 mg tablet,disintegrating 4 mg PO TID PRN (Reason: nausea and vomiting) 7 Days Qty: 21 0RF Rx Instructions: take 30 minutes before taking antibiotic Bone Up 1 tab PO BID Premarin 0.625 mg/gram cream 0.3125 mg vaginal 2XWK Sinus Calm 1 tab PO DIRECTED PRN (Reason: Congestion) levalbuterol tartrate 45 mcg/actuation Hfa Aerosol Inhaler 1 puff INHALATION Q4H PRN (Reason: Wheezing) propylene glycol-glycerin 0.6-0.6 % Dropperette 1 drp OPHTHALMIC (EYE) .6-8XDAILY multivit with min-folic acid [Adult Multivitamin Gummies] 200 mcg Tablet,Chewable 1 tab PO DAILY Probiotic 10 billion cell Capsule 10,000 mmu cells PO DAILY zinc glycinate 7.5 mg Tablet,Chewable 15 mg PO DAILY magnesium oxide 300 mg magnesium Tablet 300 mg PO DAILY Discontinued metronidazole 500 mg tablet 500 mg PO BID 7 Days Qty: 14 0RF Discharge Orders: Discharge Order (Routine); Ordered 11/30/23 Ordered By: Duke Buenrostro Admission Data Admit Date/Time: 11/27/23 20:33 Attending Provider: Duke Buenrostro Admit Provider: Fred Carlisle Primary Care Provider: Marlyn Garcia Other Providers: Enrique Thomas; Fred Carlisle
== END 2023-11-30 16:00 | disposition home or self-care (01) | DRG 643 ==
LOC: ED 15:04 → SUATTDRO 20:33 → EDINP 20:33 → 2S 23:58